=== PATIENT | female | born 1955 | race Caucasian/White ===

== ENCOUNTER → 2017-05-09 | Outpatient (CLI) | payer MEDICARE, OTHER ==
[2017-05-09 18:55] LABS: Hemoglobin A1C 6.6 % (4.0-6.0)
== END | disposition home or self-care (01) ==
LOC: LABWHC1 10:06
PROVIDERS: ATTEND Podiatrist Foot & Ankle Surgery
DX: E11.9 Type 2 diabetes mellitus without complications (principal)
CPT/HCPCS: 36415; 83036

== ENCOUNTER → 2017-06-10 | Outpatient (CLI) | payer MEDICARE, OTHER ==
--- NOTE | 2017-06-10 17:42 | WWHP ---
[facility] - HISTORY AND PHYSICAL DATE OF DICTATION: 06/10/2017 CHIEF COMPLAINT: The patient is here for her routine gynecologic exam and mammogram. HISTORY OF PRESENT ILLNESS: This is a 61-year-old G2, P2 with an LMP of 1995. The patient is without gynecologic complaints. PAST MEDICAL HISTORY: 1. Hypothyroidism. 2. Chronic hypertension. 3. Seasonal allergies and asthma. 4. Restless legs syndrome. 5. Borderline diabetes. 6. Chronic back pain. 7. High cholesterol. MEDICATIONS: 1. Levothyroxine 75 mcg daily. 2. Oxycodone with acetaminophen 5/325 mg t.i.d. p.r.n. 3. Montelukast sodium 10 mg at bedtime. 4. Lisinopril 40 mg daily. 5. Bisoprolol/hydrochlorothiazide 5/6.25 mg daily. 6. Meloxicam 7.5 mg b.i.d. 7. Lyrica 225 mg b.i.d. 8. Cetirizine 10 mg daily. 9. Simvastatin 40 mg daily. ALLERGIES: 1. VICODIN. 2. TRAMADOL. 3. MSG. PAST SURGICAL HISTORY: 1. section x2. 2. Tonsillectomy with adenoidectomy at age 20. 3. Colonoscopy in 2017. 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 SOCIAL HISTORY: She denies tobacco and drug use and has about 6 alcohol-containing drinks per week. She is single but has not had a sexual partner since about 2009. She does not really consider him her boyfriend and does not live with him. She states that this is a monogamous relationship. She works for [employer]. FAMILY HISTORY: Father had diabetes. Brother had an CA at age 56. REVIEW OF SYSTEMS: She has lost 13 pounds with diet. She denies respiratory, cardiac or GI problems. PHYSICAL EXAMINATION: Blood pressure 154/69, height 5 feet 3 inches, weight 221 pounds. BMI 39, temperature 97.8, pulse 63. This is a well-developed, heavyset white female who is alert and oriented x3, in no acute distress. HEENT: Within normal limits. NECK: Supple without mass or thyromegaly. CHEST AND LUNGS: Clear to auscultation. HEART: Regular rate and rhythm. Breasts are without mass or discharge. There is central nipple inversion which she has had for approximately 3-4 years. Axillary exam is negative for adenopathy, back negative for CVA tenderness. ABDOMEN: Obese, soft, nontender, without palpable masses. PELVIC EXAM: External genitalia reveal mild atrophy without lesions. Cervix and vagina reveal mild atrophy without lesions. There is no evidence of prolapse. The uterus is mid position, nongravid size and nontender. There are no palpable adnexal masses or tenderness. Rectovaginal exam is negative for mass or tenderness and is negative for occult blood. Extremities are nontender. IMPRESSION: Jjlhv-ekup-wsdg-old menopausal female with normal gynecologic exam. PLAN: 1. Pap smear was deferred since she had a normal one less than 2 years ago. 2. Self breast examination was discussed. 3. Screening mammogram will be done today. 4. Osteoporosis prevention was discussed. We will plan on doing a baseline screening bone density test next year. 5. She will return in one year. MMODL / IJN: [id number] / ORA
--- NOTE | 2017-06-11 13:13 | MM ---
Reason for exam: screening (asymptomatic). Last mammogram was performed 1 year and 6 months ago. History: Patient is postmenopausal and had first child at age 39. Took estrogen for 1 year. Physical Findings: A clinical breast exam by your physician is recommended on an annual basis and results should be correlated with mammographic findings. MG Screening Mammo w CAD Bilateral CC and MLO view(s) were taken. Prior study comparison: December 12, 2015, bilateral MG screening mammo w CAD. November 01, 2010, bilateral digital screening mammo w/CAD. There are scattered fibroglandular densities. No suspicious abnormality. No significant changes when compared with prior studies. ASSESSMENT: Negative, BI-RAD 1 RECOMMENDATION: Routine screening mammogram of both breasts in 1 year.
== END | disposition home or self-care (01) ==
LOC: WWCWWP 16:11
PROVIDERS: ATTEND Obstetrics & Gynecology
DX: Z12.31 Encounter for screening mammogram for malignant neoplasm of breast (principal)
CPT/HCPCS: 77067

== ENCOUNTER 2018-08-04 16:56 | Emergency (ER) | payer OTHER, MEDICARE ==
[2018-08-04 17:02] VITALS: BP 154/84; PULSE 66; RESP 18; TEMP 98.1
[2018-08-04] MEDS ORDERED: SODIUM CHLORIDE 0.9% 1,000 ML IV STA (17:06)
[2018-08-04] MEDS ORDERED: SODIUM CHLORIDE 0.9% 500 ML 500 ML IV STA (17:06)
[2018-08-04] MEDS ORDERED: DIPH,PERTUS(ACELL)TETVAC-LF 0.5 ML VIAL IM ONE (17:06)
[2018-08-04 17:28] LABS: Basophils # (A) 0.1 k/uL (0-0.2); Basophils % (A) 1 %; Eosinophils # (A) 0.2 k/uL (0-0.7); Eosinophils % (A) 2 %; Lymphocytes # (A) 2.6 k/uL (1.0-4.8); Lymphocytes % (A) 27 %; MCH 30.8 pg (25.0-35.0); MCHC 33.5 g/dL (31.0-37.0); MCV 91.9 fL (80.0-100.0); Mean Platelet Volume 7.5; Monocytes # (A) 0.6 k/uL (0-1.0); Monocytes % (A) 7 %; Neutrophils # (A) 6.2 k/uL (1.3-7.7); Neutrophils % (A) 63 %; Platelet Count 259 k/uL (150-450); RBC 4.24 m/uL (3.80-5.40); RDW 12.4 % (11.5-15.5); WBC 9.7 k/uL (3.8-10.6)
[2018-08-04 17:36] LABS: ALT 83 U/L (9-52); AST 89 U/L (14-36); Albumin 4.3 g/dL (3.5-5.0); Alcohol <10 mg/dL; Alkaline Phosphatase 107 U/L (38-126); Amylase 70 U/L (30-110); Anion Gap 8 mmol/L; Blood Urea Nitrogen 11 mg/dL (7-17); Calcium 9.6 mg/dL (8.4-10.2); Carbon Dioxide 27 mmol/L (22-30); Chloride 96 mmol/L (98-107); Glucose 104 mg/dL (74-99); Lipase 842 U/L (23-300); Potassium 4.3 mmol/L (3.5-5.1); Sodium 131 mmol/L (137-145); Total Bilirubin 0.6 mg/dL (0.2-1.3); Total Protein 6.8 g/dL (6.3-8.2)
[2018-08-04 17:39] LABS: INR 0.9 (<1.2); Partial Thromboplastin Time 23.8 sec (22.0-30.0); Prothrombin Time 9.9 sec (9.0-12.0)
[2018-08-04 17:40] LABS: Creatine Kinase 100 U/L (30-135)
--- NOTE | 2018-08-04 17:40 | XR ---
EXAMINATION TYPE: XR chest 1V portable DATE OF EXAM: 08/04/2018 COMPARISON: 09/20/2014 HISTORY: Pain TECHNIQUE: Single frontal view of the chest is obtained. FINDINGS: Heart and mediastinum are normal. Lungs are clear. Diaphragm is normal. Bony thorax is int act. There are chest leads. IMPRESSION: No active cardiopulmonary disease. Normal heart. No change.
--- NOTE | 2018-08-04 17:41 | XR ---
EXAMINATION TYPE: XR pelvis AP view DATE OF EXAM: 08/04/2018 COMPARISON: NONE HISTORY: Pain TECHNIQUE: Single view FINDINGS: Pelvic ring is intact. Proximal femurs and hip joints are intact. Hip joint spaces are fair ly normal. Sacroiliac joints are intact. IMPRESSION: Negative pelvis x-ray exam.
[2018-08-04 17:52] LABS: Creatine Kinase MB 1.2 ng/mL (0.0-2.4); Troponin I <0.012 ng/mL (0.000-0.034)
[2018-08-04] MEDS ORDERED: MORPHINE SULFATE 4 MG/ML SYRINGE IVP STA (17:56)
[2018-08-04] MEDS ORDERED: ONDANSETRON 4 MG/2 ML VIAL IVP STA ×2 (17:57→18:49)
--- NOTE | 2018-08-04 17:59 | XR ---
EXAMINATION TYPE: XR knee 4V RT DATE OF EXAM: 08/04/2018 COMPARISON: NONE HISTORY: Pain TECHNIQUE: 4 views FINDINGS: There is narrowing of the medial joint space of the knee. There is spurring of medial femor al and tibial condyles. I see no fracture nor dislocation. There is laceration deformity above the pa tella on the lateral view. There is a 6 mm density projected in the laceration region on the lateral view that could be a foreign body. IMPRESSION: Soft tissue laceration deformity. Osteoarthritis. No fracture. Possible soft tissue forei gn body.
[2018-08-04] MEDS ORDERED: BUPIVACAINE (PF) 0.5% 30 ML VIAL SQ STA (18:02)
[2018-08-04] MEDS ORDERED: LIDOCAINE 1%-EPI 1:100,000 20 ML VIAL SQ STA (18:04)
[2018-08-04] MEDS ORDERED: SODIUM CHLORIDE 0.9% 2,000 ML IV ONE (19:38)
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
[2018-08-04 20:20] LABS: Appearance,Urine Clear (Clear); Bilirubin,Urine Negative (Negative); Blood,Urine Negative (Negative); Color,Urine Light Yellow; Glucose,Urine (UA) Negative (Negative); Ketones,Urine Negative (Negative); Leukocyte Esterase,Urine Negative (Negative); Nitrite,Urine Negative (Negative); Protein,Urine Negative (Negative); Specific Gravity,Urine 1.013 (1.001-1.035); Urobilinogen,Urine <2.0 mg/dL (<2.0)
[2018-08-04 20:34] LABS: Amphetamine Screen,Urine Not Detected (NotDetected); Barbiturate Screen,Urine Not Detected (NotDetected); Benzodiazepines Screen,Urine Not Detected (NotDetected); Cocaine Screen,Urine Not Detected (NotDetected); Methadone Screen, Urine Not Detected (NotDetected); Opiate Screen,Urine Detected (NotDetected); Oxycodone Screen, Urine Not Detected (NotDetected); Phencyclidine Screen,Urine Not Detected (NotDetected); Tricyclic Antidepressant,Urine Not Detected (NotDetected); Urn Cannabinoid Scrn Detected (NotDetected)
[2018-08-04] MEDS ORDERED: ceFAZolin 1,000 MG in DEXTROSE/WATER 1 50ML.BAG IVPB STA (20:43)
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
== END 2018-08-04 22:00 | disposition home or self-care (01) ==
LOC: EC 16:56
DX: S81.021A Laceration with foreign body, right knee, initial encounter (principal); S20.211A Contusion of right front wall of thorax, initial encounter; J45.909 Unspecified asthma, uncomplicated; E78.5 Hyperlipidemia, unspecified; I10 Essential (primary) hypertension; E07.9 Disorder of thyroid, unspecified; R00.1 Bradycardia, unspecified; R11.0 Nausea; R42 Dizziness and giddiness; M19.90 Unspecified osteoarthritis, unspecified site; J98.11 Atelectasis; G25.81 Restless legs syndrome; Z23 Encounter for immunization; Z98.51 Tubal ligation status; Z79.1 Long term (current) use of non-steroidal anti-inflammatories (NSAID); Z79.51 Long term (current) use of inhaled steroids; Z79.84 Long term (current) use of oral hypoglycemic drugs; Z79.890 Hormone replacement therapy; Z79.891 Long term (current) use of opiate analgesic; Z79.899 Other long term (current) drug therapy; Z88.5 Allergy status to narcotic agent; Z91.018 Allergy to other foods; V43.53XA Car driver injured in collision with pick-up truck in traffic accident, initial encounter; Y92.410 Unspecified street and highway as the place of occurrence of the external cause
CPT/HCPCS: 99285; 12034; 96365; 96375 ×2; 96376; 96361 ×3; 90471; 36415; 93005; 86900; 86901; 80053; 82150; 82550; 82553; 83605; 83690; 84484; 85025; 85610; 85730; 86850; 81003; 80306; 80320; 72170; 73564; 71045; 72125; 70450; 71260; 74177; 90715; J2270; J2405; J0690; Q9967

== ENCOUNTER → 2018-09-10 | Outpatient (CLI) | payer MEDICARE, OTHER ==
--- NOTE | 2018-09-11 14:13 | MM ---
Reason for exam: screening (asymptomatic). Last mammogram was performed 1 year and 3 months ago. History: Patient is postmenopausal and had first child at age 39. Took estrogen for 1 year. Physical Findings: A clinical breast exam by your physician is recommended on an annual basis and results should be correlated with mammographic findings. MG 3D Screening Mammo W/Cad Bilateral CC and MLO view(s) were taken. Prior study comparison: June 10, 2017, bilateral MG screening mammo w CAD. December 12, 2015, bilateral MG screening mammo w CAD. The breast tissue is heterogeneously dense. This may lower the sensitivity of mammography. Finding: There are typically benign vascular, round, linear calcifications. There is no discrete abnormality. ASSESSMENT: Benign, BI-RAD 2 RECOMMENDATION: Routine screening mammogram of both breasts in 1 year.
== END | disposition home or self-care (01) ==
LOC: RADMAMWWP 08:31
PROVIDERS: ATTEND Family Medicine
DX: Z12.31 Encounter for screening mammogram for malignant neoplasm of breast (principal)
CPT/HCPCS: 77063; 77067

== ENCOUNTER → 2019-09-30 | Outpatient (CLI) | payer MEDICARE, OTHER ==
--- NOTE | 2019-10-01 07:53 | US ---
EXAMINATION TYPE: US liver DATE OF EXAM: 09/30/2019 COMPARISON: NONE CLINICAL HISTORY: 63-year-old female abnormal liver function test R94.5. TECHNIQUE: Multiple sonographic images of the right upper quadrant are obtained. FINDINGS: EXAM MEASUREMENTS: Liver Length: 16.8 cm Gallbladder Wall: .3 cm CBD: .4 cm Right Kidney: 9.1 x 3.8 x 4.8 cm Pancreas: Suboptimal visualization of the pancreatic tail secondary to shadowing from bowel gas. Mos t of the pancreas is visualized and shows no gross abnormality. Liver: Echogenic without focal lesion. Gallbladder: wnl Evidence for sonographic Ugalde's sign: No CBD: wnl Right Kidney: No hydronephrosis. IMPRESSION: 1. Echogenic appearance to the liver suggesting underlying fatty infiltration. 2. No cholelithiasis or biliary ductal dilatation.
== END | disposition home or self-care (01) ==
LOC: RADUSWWP 15:30
PROVIDERS: ATTEND Family Medicine
DX: R94.5 Abnormal results of liver function studies (principal); Z88.4 Allergy status to anesthetic agent; Z88.8 Allergy status to other drugs, medicaments and biological substances
CPT/HCPCS: 76705

== ENCOUNTER 2020-03-03 07:27 | Day surgery (SDC) | payer MEDICARE, OTHER ==
[2020-03-02 08:38] VITALS: BMI 38.9
[~2020-03-03 07:27] MED LIST: ACETAMINOPHEN TAB 500 MG TAB PO ONE; DEXAMETHASONE SOD PHOSPHATE 10 MG/ML 1 ML VIAL IV ONE; HEPARIN SODIUM,PORCINE 5,000 UNIT/ML 1 ML VIAL SQ ONE; HYDROmorphone 0.5 MG/0.5 ML SYRINGE IVP PRN; LACTATED RINGERS 1,000 ML IV SCH; LIDOCAINE 1% (10MG/ML) FOR IV START INTRADERMA PRN; MIDAZOLAM 2 MG/2 ML VIAL IV PRN; ONDANSETRON 4 MG/2 ML VIAL IVP ONE
[2020-03-03 07:45] VITALS: TEMP 96.9
--- NOTE | 2020-03-03 07:46 | P.GSHP ---
History of Present Illness H&P Date: 03/03/20 Chief Complaint: Right quadrant pain Is a 62-year-old female who's had complaints of right quadrant pain. Patient describes pain and nausea when eating greasy or fried foods. She presents today for laparoscopic ostectomy for chronic cholecystitis. Past Medical History Past Medical History: Asthma, Diabetes Mellitus, GERD/Reflux, Hyperlipidemia, Hypertension, Osteoarthritis (OA), Thyroid Disorder Additional Past Medical History / Comment(s): Restless Leg syndrome, (takes Lyrica), states severe arthritis and bone degeneration History of Any Multi-Drug Resistant Organisms: None Reported Past Surgical History: Adenoidectomy, Section, Tonsillectomy, Tubal Ligation Past Anesthesia/Blood Transfusion Reactions: Postoperative Nausea & Vomiting (PONV) Smoking Status: Never smoker - Past Family History Mother Family Medical History: No Reported History Brother(s) Family Medical History: Myocardial Infarction ([place]) Medications and Allergies Home Medications Medication Instructions Recorded Confirmed Type Beclomethasone Dipropionate [Qvar 2 puff INHALATION BID 03/02/14 03/02/20 History 80 mcg/puff] Bisoprolol-Hctz 5-6.25 mg [Ziac 1 tab PO DAILY 03/02/14 03/02/20 History 5-6.25 MG] Levothyroxine Sodium [Synthroid] 75 mcg PO QAM 03/02/14 03/02/20 History Meloxicam 7.5 mg PO BID 03/02/14 03/02/20 History Montelukast Sodium [Singulair] 10 mg PO DAILY 03/02/14 03/02/20 History lisinopriL [Lisinopril] 40 mg PO QAM 03/02/14 03/02/20 History oxyCODONE-APAP 5-325MG [Percocet 1 tab PO BID 03/02/14 03/02/20 History 5-325 mg] Pregabalin [Lyrica] 225 mg PO BID 09/12/14 03/02/20 History Simvastatin [Zocor] 40 mg PO HS 05/27/16 03/02/20 History metFORMIN HCL [Glucophage] 500 mg PO BID 08/04/18 03/02/20 History Pantoprazole [Protonix] 40 mg PO DAILY 03/02/20 03/02/20 History Venlafaxine HCl [Effexor XR] 150 mg PO QAM 03/02/20 03/02/20 History Allergies Allergy/AdvReac Type Severity Reaction Status Date / Time codeine phosphate Allergy Vomiting Verified 03/02/20 08:33 [From Tylenol-Codeine] hydrocodone bitartrate Allergy Vomiting Verified 03/02/20 08:33 [From Vicodin] monosodium glutamate Allergy Anaphylaxis Verified 03/02/20 08:33 tramadol Allergy DIZZINESS Verified 03/02/20 08:33 Surgical - Exam - General well developed, well nourished, no distress - Eyes PERRL - ENT normal pinna - Neck no masses - Respiratory normal expansion - Cardiovascular Rhythm: regular - Abdomen Abdomen: soft, non tender Assessment and Plan Assessment: Chronic cholecystitis. We'll perform laparoscopic cholecystectomy.
[2020-03-03] MEDS ORDERED: PROPOFOL 10 MG/ML 20 ML VIAL IV ONE (08:04)
[2020-03-03] MEDS ORDERED: LIDOCAINE 1% INJ 10MG/ML (20 ML MDV) ONE (08:04)
[2020-03-03] MEDS ORDERED: KETOROLAC 15 MG/ML 1 ML VIAL ONE (08:04)
[2020-03-03] MEDS ORDERED: SUCCINYLCHOLINE CHLORIDE 100 MG/5 ML SYR IV ONE (08:04)
[2020-03-03] MEDS ORDERED: ROCURONIUM 10 MG/ML (10 ML VIAL) IV ONE (08:04)
[2020-03-03] MEDS ORDERED: MIDAZOLAM 2 MG/2 ML VIAL ONE (08:04)
[2020-03-03] MEDS ORDERED: fentaNYL (PF) 50 MCG/ML 2 ML AMP ONE (08:04)
[2020-03-03] MEDS ORDERED: NEOSTIGMINE 1 MG/ML 10 ML VIAL ONE (08:04)
[2020-03-03] MEDS ORDERED: GLYCOPYRROLATE 0.2 MG/ML 2 ML VIAL ONE (08:04)
[2020-03-03] MEDS ORDERED: ATROPINE SULFATE 0.4 MG/ML 1 ML VIAL ONE (08:04)
[2020-03-03 08:05] LABS: Glucose,Whole Blood 176 mg/dL (75-99)
[2020-03-03] MEDS ORDERED: BUPIVACAINE (PF) 0.25% 30 ML VIAL SQ ONE (08:35)
--- NOTE | 2020-03-03 08:49 | P.OP ---
Date of Procedure: 03/03/20 Preoperative Diagnosis: Cholecystitis Biliary hypokinesis Postoperative Diagnosis: Cholecystitis Procedure(s) Performed: Laparoscopic cholecystectomy Anesthesia: ROSALIE Surgeon: Miguel Willams Estimated Blood Loss (ml): 5 Pathology: other (Gallbladder) Condition: stable Disposition: PACU Description of Procedure: The patient was placed on the operating table. The patient received a general endotracheal tube anesthesia. The patients abdomen was prepped and draped in the usual sterile fashion. Through an infraumbilical stab incision, the fascia of the anterior abdominal wall was grasped with a pair of Kochers and then the Veress needle was placed in the peritoneal cavity. Position of the Veress needle was confirmed with positive drop test. The abdomen was then insufflated. After adequate insufflation, the 10 mm trocar was placed in the peritoneal cavity. Following this the laparoscope was placed in the peritoneal cavity. The patient was placed in the head-up, right side up position and then a 5 mm trocar was placed in the right lateral and right subcostal position under direct visualization. A 8 mm trocar was placed in the epigastric position. The gallbladder was grasped in the fundus and infundibulum. Traction on the gallbladder was placed in the lateral and the cephalad positions. The triangle of Calot was visualized.. The cystic duct was bluntly dissected until the union of the cystic duct and common bile duct was seen. A critical view of safety was achieved. The cystic duct was then divided and sealed with the Harmonic scissors. A PDS Endoloop was then placed throughout the cystic duct stump. The cystic artery divided and sealed with the Harmonic scissors. The gallbladder was then removed from the liver bed using Harmonic scissors. The gallbladder was then extracted through the epigastric port site. Operative field was checked for any bleeding spots and Harmonic scissors was used to coagulate the liver bed. The abdomen was irrigated. The trocars were removed. The skin was closed using interrupted 3-0 Vicryl suture. Dermabond dressing were applied. The patient tolerated the procedure well.
[2020-03-03 09:12] VITALS: RESP 16
[2020-03-03 09:12] LABS: Glucose,Whole Blood 188 mg/dL (75-99)
[2020-03-03 10:12] VITALS: BP 115/76
[2020-03-03 10:42] VITALS: PULSE 61
== END 2020-03-03 11:15 | disposition home or self-care (01) ==
LOC: OR 07:27
PROVIDERS: ATTEND Surgery
DX: K80.10 Calculus of gallbladder with chronic cholecystitis without obstruction (principal); J45.909 Unspecified asthma, uncomplicated; E11.9 Type 2 diabetes mellitus without complications; K21.9 Gastro-esophageal reflux disease without esophagitis; E78.5 Hyperlipidemia, unspecified; I10 Essential (primary) hypertension; M19.90 Unspecified osteoarthritis, unspecified site; E07.9 Disorder of thyroid, unspecified; G25.81 Restless legs syndrome; M89.8X9 Other specified disorders of bone, unspecified site; K08.89 Other specified disorders of teeth and supporting structures; F32.9 Major depressive disorder, single episode, unspecified; Z90.89 Acquired absence of other organs; Z98.890 Other specified postprocedural states; Z98.51 Tubal ligation status; Z91.89 Other specified personal risk factors, not elsewhere classified; Z79.51 Long term (current) use of inhaled steroids; Z79.899 Other long term (current) drug therapy; Z79.890 Hormone replacement therapy; Z79.1 Long term (current) use of non-steroidal anti-inflammatories (NSAID); Z79.891 Long term (current) use of opiate analgesic; Z79.84 Long term (current) use of oral hypoglycemic drugs; Z88.5 Allergy status to narcotic agent; Z91.02 Food additives allergy status; Z82.49 Family history of ischemic heart disease and other diseases of the circulatory system
CPT/HCPCS: 88304; 47562; J2250; J0461; J1644; J1100; J2710; J0690; J2405; J2001; J3010; J1885; J0330; J2704

== ENCOUNTER → 2020-07-11 | Outpatient (CLI) | payer MEDICARE, OTHER ==
[2020-07-11 10:40] VITALS: BP 147/95; PULSE 80; RESP 18; TEMP 98.3
--- NOTE | 2020-07-11 11:32 | P.HPOB ---
History of Present Illness H&P Date: 07/11/20 Chief Complaint: The patient is here for her routine gynecologic exam. This is a 64-year-old with an LMP of 1995. The patient is without gynecologic complaints and denies any postmenopausal bleeding. Review of Systems She has gained about 7 pounds over the past 3 years. She denies respiratory, cardiac, or GI problems. 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 History of Any Multi-Drug Resistant Organisms: None Reported Past Surgical History: Adenoidectomy, Section, Tonsillectomy, Tubal Ligation Additional Past Surgical History / Comment(s): section 2. Colonoscopy 2016(next after 10yr) Past Anesthesia/Blood Transfusion Reactions: Postoperative Nausea & Vomiting (PONV) Past Psychological History: Depression Smoking Status: Never smoker Past Alcohol Use History: Occasional (6 per week) Past Drug Use History: None Reported Additional History: She has been with her sexual partner since 2009 and does not live with him. She states this is a monogamous relationship. 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 - Past Family History Mother Family Medical History: No Reported History Brother(s) Family Medical History: Myocardial Infarction ([place]) Father Family Medical History: Diabetes Mellitus Medications and Allergies Home Medications Medication Instructions Recorded Confirmed Type Bisoprolol-Hctz 5-6.25 mg [Ziac 1 tab PO DAILY 03/02/14 07/11/20 History 5-6.25 MG] Levothyroxine Sodium [Synthroid] 75 mcg PO QAM 03/02/14 07/11/20 History Meloxicam 7.5 mg PO BID 03/02/14 07/11/20 History Montelukast Sodium [Singulair] 10 mg PO DAILY 03/02/14 07/11/20 History lisinopriL [Lisinopril] 40 mg PO QAM 03/02/14 07/11/20 History Pregabalin [Lyrica] 225 mg PO BID 09/12/14 07/11/20 History Simvastatin [Zocor] 40 mg PO HS 05/27/16 07/11/20 History metFORMIN HCL [Glucophage] 500 mg PO BID 08/04/18 07/11/20 History Pantoprazole [Protonix] 40 mg PO DAILY 03/02/20 07/11/20 History Venlafaxine HCl [Effexor XR] 150 mg PO QAM 03/02/20 07/11/20 History HYDROcodone/APAP 5-325MG [[place] 1 tab PO Q6HR PRN #10 tab 03/03/20 07/11/20 Rx 5-325] Cetirizine HCl 10 mg PO DAILY 07/11/20 07/11/20 History Fluticasone Propionate [Flovent 50 mcg INHALATION DAILY 07/11/20 07/11/20 History Diskus] Fluticasone/Salmeterol [Advair Hfa 2 puff INHALATION BID 07/11/20 07/11/20 History 115-21 Mcg Inhaler] lisinopriL 40 mg PO DAILY 07/11/20 07/11/20 History Allergies Allergy/AdvReac Type Severity Reaction Status Date / Time codeine phosphate Allergy Vomiting Verified 07/11/20 10:32 [From Tylenol-Codeine] hydrocodone bitartrate Allergy Vomiting Verified 07/11/20 10:32 [From Vicodin] monosodium glutamate Allergy Anaphylaxis Verified 07/11/20 10:32 tramadol Allergy DIZZINESS Verified 07/11/20 10:32 Exam Vital Signs Temp Pulse Resp BP Pulse Ox 07/11/20 10:33 98.3 F 80 18 147/95 97 Intake and Output 07/10/20 07/11/20 07/11/20 22:59 06:59 14:59 Other: Weight 103.419 kg Height 5 feet 3 inches, weight 228 pounds, BMI 40.4. This is a well-developed well-nourished heavyset white female who is alert and oriented times 3 in no acute distress. HEENT: Within normal limits. NECK: Supple without mass or thyromegaly. CHEST AND LUNGS: Clear to auscultation. HEART: Regular rate and rhythm. BREASTS: Are without mass or discharge. There is central nipple inversion b ilaterally. The patient states they have been this way for several years. This is unchanged from her 06/10/17 exam. AXILLARY EXAM: Negative for adenopathy. BACK: Negative for CVA tenderness. ABDOMEN: Soft, nontender, without palpable masses. PELVIC EXAM: Normal external genitalia with mild atrophy. Cervix and vagina appear normal with mild atrophy. The cervix appears nulliparous and is slightly stenotic secondary to atrophy. There is no unusual discharge. There is no evidence of prolapse. The uterus is midposition, nongravid size and nontender. There are no palpable adnexal masses or tenderness. Bimanual examination is somewhat limited secondary to her size. RECTAL EXAM: Rectovaginal exam is negative for mass or tenderness and is negative for occult blood. EXTREMITIES: Nontender. IMPRESSION: 1. 64-year-old menopausal female with normal gynecologic exam. 2. Stable central nipple inversion on breast exam. PLAN: 1. Pap smear cotest was performed. 2. Self breast awareness was discussed with the patient. 3. The patient states she had a screening mammogram in September 2019 at [facility]. I recommended that she repeat this again this September. The order slip was given to the patient for this. 4. Osteoporosis prevention was discussed. I have stressed the importance of adequate calcium, vitamin D and regular exercise. Recommended amounts of calcium and vitamin D were also discussed. She had a normal bone density test on 12/12/2015. I have recommended that we repeat this again next year. 5. She was advised to return in one year for her annual well woman exam.
--- NOTE | 2020-07-18 17:47 | P.PN ---
Progress Note - Text Progress Note Date: 07/18/20 OUTPATIENT FOLLOW-UP NOTE TEST(S)/RESULTS: Test results from 07/11/2020 include negative Pap smear and negative high risk HPV testing. METHOD OF NOTIFICATION: A message with these results was left on the patient's voicemail. PATIENT COMMENTS: DIAGNOSIS: Negative Pap smear cotest. DISCUSSION: PLAN: She was advised to return in one year for her annual well woman exam.
== END ==
LOC: WWCWWP 10:23
PROVIDERS: ATTEND Obstetrics & Gynecology
DX: N64.59 Other signs and symptoms in breast (principal); J45.909 Unspecified asthma, uncomplicated; E11.9 Type 2 diabetes mellitus without complications; I10 Essential (primary) hypertension; E78.5 Hyperlipidemia, unspecified; M19.90 Unspecified osteoarthritis, unspecified site; E03.9 Hypothyroidism, unspecified; F32.9 Major depressive disorder, single episode, unspecified; K21.9 Gastro-esophageal reflux disease without esophagitis; Z79.51 Long term (current) use of inhaled steroids; Z79.1 Long term (current) use of non-steroidal anti-inflammatories (NSAID); Z79.84 Long term (current) use of oral hypoglycemic drugs; Z79.899 Other long term (current) drug therapy; Z79.890 Hormone replacement therapy

== ENCOUNTER → 2021-08-28 | Outpatient (CLI) | payer MEDICARE, OTHER ==
[2021-08-28 12:48] VITALS: PULSE 68; RESP 12; TEMP 98.2
--- NOTE | 2021-08-28 13:21 | P.HPOB ---
History of Present Illness H&P Date: 08/28/21 Chief Complaint: The patient is here for her routine gynecologic exam and ma mmogram. This is a 65-year-old with an LMP of 1995. The patient is without gynecologic complaints and denies any postmenopausal bleeding. Review of Systems The patient has lost about 3 pounds over the past year. Respiratory: Occasional ALLERGY symptoms. She denies cardiac or GI problems. Musculoskeletal: Occasional muscular cramps. 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 History of Any Multi-Drug Resistant Organisms: None Reported Past Surgical History: Adenoidectomy, Section, Cholecystectomy, Tonsillectomy, Tubal Ligation Additional Past Surgical History / Comment(s): section 2. Colonoscopy 2017(next after 10yr) Past Anesthesia/Blood Transfusion Reactions: Postoperative Nausea & Vomiting (PONV) Past Psychological History: Depression Smoking Status: Never smoker Past Alcohol Use History: Occasional (Less than 7 per week.) Past Drug Use History: None Reported Additional History: She has been with her boyfriend since 2009 and does not live with him. 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 - Past Family History Mother Family Medical History: No Reported History Brother(s) Family Medical History: Myocardial Infarction ([place]) Father Family Medical History: Diabetes Mellitus Medications and Allergies Home Medications Medication Instructions Recorded Confirmed Type Bisoprolol-Hctz 5-6.25 mg [Ziac 1 tab PO DAILY 03/02/14 07/11/20 History 5-6.25 MG] Levothyroxine Sodium [Synthroid] 75 mcg PO QAM 03/02/14 07/11/20 History Meloxicam 7.5 mg PO BID 03/02/14 07/11/20 History Montelukast Sodium [Singulair] 10 mg PO DAILY 03/02/14 07/11/20 History lisinopriL [Lisinopril] 40 mg PO QAM 03/02/14 07/11/20 History Pregabalin [Lyrica] 225 mg PO BID 09/12/14 07/11/20 History Simvastatin [Zocor] 40 mg PO HS 05/27/16 07/11/20 History metFORMIN HCL [Glucophage] 500 mg PO BID 08/04/18 07/11/20 History Pantoprazole [Protonix] 40 mg PO DAILY 03/02/20 07/11/20 History Venlafaxine HCl [Effexor XR] 150 mg PO QAM 03/02/20 07/11/20 History HYDROcodone/APAP 5-325MG [[place] 1 tab PO Q6HR PRN #10 tab 03/03/20 07/11/20 Rx 5-325] Cetirizine HCl 10 mg PO DAILY 07/11/20 07/11/20 History Ondansetron [Zofran] 4 mg PO DIRECTED PRN 08/28/21 08/28/21 History Allergies Allergy/AdvReac Type Severity Reaction Status Date / Time codeine phosphate Allergy Vomiting Verified 08/28/21 12:42 [From Tylenol-Codeine] hydrocodone bitartrate Allergy Vomiting Verified 08/28/21 12:42 [From Vicodin] monosodium glutamate Allergy Anaphylaxis Verified 08/28/21 12:42 tramadol Allergy DIZZINESS Verified 08/28/21 12:42 Exam Vital Signs Temp Pulse Resp 08/28/21 12:44 98.2 F 68 12 Intake and Output 08/27/21 08/28/21 08/28/21 22:59 06:59 14:59 Other: Weight 102.058 kg Height 5 feet 2 inches, weight 225 pounds, BMI 41.2. This is a well-developed well-nourished heavyset white female who is alert and oriented times 3 in no acute distress. HEENT: Within normal limits. NECK: Supple without mass or thyromegaly. CHEST AND LUNGS: Clear to auscultation. HEART: Regular rate and rhythm. BREASTS: Are without mass or discharge. There is bilateral central nipple inversion which the patient states she has had for many years. AXILLARY EXAM: Negative for adenopathy. BACK: Negative for CVA tenderness. ABDOMEN: Soft, obese, nontender, without palpable masses. PELVIC EXAM: Normal external genitalia with mild atrophy. Cervix and vagina appear normal with mild atrophy. There is no unusual discharge. There is no evidence of prolapse. The uterus is midposition, nongravid size and nontender. There are no palpable adnexal masses or tenderness. Bimanual examination is somewhat limited secondary to her size. RECTAL EXAM: Rectovaginal exam is negative for mass or tenderness and is negative for occult blood. EXTREMITIES: Nontender. IMPRESSION: 1. 65-year-old menopausal female with normal gynecologic exam. PLAN: 1. Pap smear was deferred since she had a normal Pap smear cotest on 07/11/2020. 2. Self breast awareness was discussed with the patient. We have also discussed symptoms associated with inflammatory breast cancer. 3. Screening mammogram will be done today. 4. Osteoporosis prevention was discussed. I have stressed the importance of adequate calcium, vitamin D and regular exercise. Recommended amounts of calcium and vitamin D were also discussed. I recommended repeating her bone density test since her last one was done in 2016 and this one was normal. She would like to do this next year. 5. She has completed her Covid vaccination series, but did not receive a booster. She will consider the booster. 6. She was advised to return in one year for her annual well woman exam.
--- NOTE | 2021-08-29 09:44 | MM ---
Reason for exam: screening (asymptomatic). Last mammogram was performed 3 years ago. History: Patient is postmenopausal and had first child at age 39. Took estrogen for 1 year. Physical Findings: A clinical breast exam by your physician is recommended on an annual basis and results should be correlated with mammographic findings. MG Screening Mammo w CAD Bilateral CC, MLO, and XCCL view(s) were taken. Prior study comparison: September 10, 2018, bilateral MG 3d screening mammo w/cad. June 10, 2017, bilateral MG screening mammo w CAD. There are scattered fibroglandular densities. Finding: There are typically benign dystrophic, round, linear calcifications in both breasts, greater in number of calcifications in the right breast. There is no discrete abnormality. Increase in number of calcifications since September 10, 2018 and June 10, 2017. ASSESSMENT: Benign, BI-RAD 2 RECOMMENDATION: Routine screening mammogram of both breasts in 1 year.
== END ==
LOC: WWCWWP 12:20
PROVIDERS: ATTEND Obstetrics & Gynecology
DX: Z12.31 Encounter for screening mammogram for malignant neoplasm of breast (principal); Z01.419 Encounter for gynecological examination (general) (routine) without abnormal findings; E03.9 Hypothyroidism, unspecified; E11.9 Type 2 diabetes mellitus without complications; E78.5 Hyperlipidemia, unspecified; J45.909 Unspecified asthma, uncomplicated; F32.A Depression, unspecified; K21.9 Gastro-esophageal reflux disease without esophagitis; M19.90 Unspecified osteoarthritis, unspecified site; I10 Essential (primary) hypertension; Z79.890 Hormone replacement therapy; Z79.84 Long term (current) use of oral hypoglycemic drugs; Z78.0 Asymptomatic menopausal state; Z88.5 Allergy status to narcotic agent; Z91.02 Food additives allergy status
CPT/HCPCS: 77067

== ENCOUNTER 2022-01-17 12:30 | Emergency (ER) | payer MEDICARE, OTHER ==
[2022-01-17] MEDS ORDERED: ONDANSETRON 4 MG ODT STARTER PACK 2 TAB BTL PO STA (15:47)
--- NOTE | 2022-01-17 16:23 | XR ---
EXAMINATION TYPE: XR chest 2V DATE OF EXAM: 01/17/2022 COMPARISON: 08/04/2018 HISTORY: 66 year-old female shortness of breath TECHNIQUE: AP and lateral views FINDINGS: Heart limits of normal in size. There is some patchy peripheral right mid and lower lung opacity. Mil d interstitial prominence is similar. No pleural effusion. IMPRESSION: Some patchy atelectasis versus developing infiltrate in the periphery of the right mid and lower lung . Clinically correlate. Otherwise, background chronic changes.
[2022-01-17] MEDS ORDERED: LORazepam 2 MG/ML INJ IV STA (16:45)
[2022-01-17] MEDS ORDERED: PANTOPRAZOLE 40 MG/10 ML VIAL IVP STA (16:45)
[2022-01-17] MEDS ORDERED: SODIUM CHLORIDE 0.9% 1,000 ML IV STA (16:45)
[2022-01-17] MEDS ORDERED: ONDANSETRON 4 MG/2 ML VIAL IVP STA (16:45)
[2022-01-17] MEDS ORDERED: SODIUM CHLORIDE 0.9% 500 ML 500 ML IV STA (16:45)
[2022-01-17] MEDS ORDERED: dexAMETHasone 2 MG TAB PO STA (16:47)
[2022-01-17] MEDS ORDERED: LABETALOL 5 MG/ML VIAL MDV IVP STA (16:47)
--- NOTE | 2022-01-17 16:51 | ED ---
General Adult HPI - General Chief complaint: Nausea/Vomiting/Diarrhea Stated complaint: NVD Time Seen by Provider: 01/17/22 16:20 Source: patient, RN notes reviewed, old records reviewed Mode of arrival: ambulatory Limitations: no limitations - History of Present Illness Initial comments: This is a 66-year-old female presents emergency department stating that she has been sick with cough and upper respiratory issues for about 6 days. Patient states she was given antibiotics and ever since she's been on antibiotic she has been able to hold anything down. Patient states she has not taken anything for her blood pressure meds because she has been vomiting every day. Patient has diffuse soreness of the belly but she believes is secondary to vomiting. Patient denies any chest pain or palpitation. Patient denies difficulty breathing. Patient denies headache patient denies any numbness weakness. Patient denies any lightheadedness or near syncopal episode. Patient feels hot and has the chills occasionally but she hasn't taken her temperature. Patient states took COVID test on Friday and it was negative however today we tested the urine it was positive. - Related Data Home Medications Medication Instructions Recorded Confirmed Bisoprolol-Hctz 5-6.25 mg [Ziac 1 tab PO DAILY 03/02/14 01/17/22 5-6.25 MG] Levothyroxine Sodium [Synthroid] 75 mcg PO QAM 03/02/14 01/17/22 Meloxicam 7.5 mg PO BID 03/02/14 01/17/22 Montelukast Sodium [Singulair] 10 mg PO DAILY 03/02/14 01/17/22 lisinopriL [Lisinopril] 40 mg PO QAM 03/02/14 01/17/22 Pregabalin [Lyrica] 225 mg PO BID 09/12/14 01/17/22 Simvastatin [Zocor] 40 mg PO HS 05/27/16 01/17/22 metFORMIN HCL [Glucophage] 500 mg PO BID 08/04/18 01/17/22 Pantoprazole [Protonix] 40 mg PO DAILY 03/02/20 01/17/22 Venlafaxine HCl [Effexor XR] 150 mg PO QAM 03/02/20 01/17/22 Cyclobenzaprine [Flexeril] 10 mg PO HS PRN 01/17/22 01/17/22 EPINEPHrine (Auto Inject) [Epipen] 0.3 mg IM ONCE PRN 01/17/22 01/17/22 Fluticasone Propion/Salmeterol 2 puff INHALATION RT-BID 01/17/22 01/17/22 [Advair Hfa 115-21 Mcg Inhaler] Levocetirizine Dihydrochloride 5 mg PO DAILY 01/17/22 01/17/22 [Xyzal] Semaglutide [Ozempic] 0.5 mg SQ SA 01/17/22 01/17/22 oxyCODONE HCL/ACETAMINOPHEN 1 tab PO TID 01/17/22 01/17/22 [Percocet 5-325 mg] Previous Rx's Medication Instructions Recorded dexAMETHasone [Decadron] 6 mg PO DAILY #5 tab 01/17/22 Allergies Allergy/AdvReac Type Severity Reaction Status Date / Time monosodium glutamate Allergy Anaphylaxis Verified 01/17/22 17:21 codeine phosphate AdvReac Vomiting Verified 01/17/22 17:21 [From Tylenol-Codeine] hydrocodone bitartrate AdvReac Vomiting Verified 01/17/22 17:21 [From Vicodin] tramadol AdvReac DIZZINESS Verified 01/17/22 17:21 Review of Systems ROS Statement: Those systems with pertinent positive or pertinent negative responses have been documented in the HPI. ROS Other: All systems not noted in ROS Statement are negative. Past Medical History Past Medical History: Asthma, Diabetes Mellitus, GERD/Reflux, Hyperlipidemia, Hypertension, Osteoarthritis (OA), Thyroid Disorder Additional Past Medical History / Comment(s): Hypothyroidism, seasonal ALLERGIE S, type 2 diabetes, chronic back pain, Restless Leg syndrome. PAST [employer] HISTORY: She has no history of STDs. History of Any Multi-Drug Resistant Organisms: None Reported Past Surgical History: Adenoidectomy, Section, Cholecystectomy, Tonsillectomy, Tubal Ligation Additional Past Surgical History / Comment(s): section 2. Colonoscopy 2017(next after 10yr) Past Anesthesia/Blood Transfusion Reactions: Postoperative Nausea & Vomiting (PONV) Past Psychological History: Depression Smoking Status: Never smoker Past Alcohol Use History: Occasional Past Drug Use History: None Reported - Past Family History Mother Family Medical History: No Reported History Brother(s) Family Medical History: Myocardial Infarction (ND) Father Family Medical History: Diabetes Mellitus General Exam - General Exam Comments Initial Comments: GENERAL: Patient is well-developed and well-nourished. Patient is nontoxic and well- hydrated and is in mild distress. ENT: Neck is soft and supple. No significant lymphadenopathy is noted. Oropharynx is clear. Dry mucous membranes. Neck has full range of motion without eliciting any pain. EYES: The sclera were anicteric and conjunctiva were pink and moist. Extraocular movements were intact and pupils were equal round and reactive to light. Eyelids were unremarkable. PULMONARY: Unlabored respirations. Good breath sounds bilaterally. No audible rales rhonc hi or wheezing was noted. CARDIOVASCULAR: There is a regular rate and rhythm without any murmurs gallops or rubs. ABDOMEN: Soft and nontender with normal bowel sounds. There is no specific area of tenderness. SKIN: Skin is clear with no lesions or rashes and otherwise unremarkable. NEUROLOGIC: Patient is alert and oriented x3. Cranial nerves II through XII are grossly intact. Motor and sensory are also intact. Normal speech, volume and content. Symmetrical smile. MUSCULOSKELETAL: Normal extremities with adequate strength and full range of motion. LYMPHATICS: No significant lymphadenopathy is noted PSYCHIATRIC: Normal psychiatric evaluation. Limitations: no limitations Course Vital Signs 01/17/22 01/17/22 01/17/22 13:03 16:24 16:45 Temperature 98.0 F 99.4 F Pulse Rate 106 H 113 H 110 H Respiratory 22 20 26 H Rate Blood Pressure 172/103 192/113 O2 Sat by Pulse 99 99 98 Oximetry 01/17/22 01/17/22 17:38 18:12 Temperature 98.9 F Pulse Rate 95 92 Respiratory 20 20 Rate Blood Pressure 169/95 114/86 O2 Sat by Pulse 99 99 Oximetry Medical Decision Making - Medical Decision Making I went back in the room to reevaluate the patient she was sleeping when I woke up she stated she felt much better. Patient states she is no longer nauseated or vomiting. Patient denied any shortness of breath or any pain whatsoever. Patient was given Zofran and fluids and Decadron in the emergency department. Patient also was given 0.5 of Ativan because she was very anxious. - Lab Data Result diagrams: 01/17/22 17:37 01/17/22 Unknown Lab Results 01/17/22 01/17/22 01/17/22 Range/Units 15:42 17:37 Unknown WBC 11.4 H (3.8-10.6) k/uL RBC 4.86 (3.80-5.40) m/uL Hgb 15.1 (11.4-16.0) gm/dL Hct 43.9 (34.0-46.0) % MCV 90.4 (80.0-100.0) fL MCH 31.1 (25.0-35.0) pg MCHC 34.4 (31.0-37.0) g/dL RDW 12.9 (11.5-15.5) % Plt Count 301 (150-450) k/uL MPV 8.2 Neutrophils % 73 % Lymphocytes % 18 % Monocytes % 8 % Eosinophils % 0 % Basophils % 0 % Neutrophils # 8.3 H (1.3-7.7) k/uL Lymphocytes # 2.1 (1.0-4.8) k/uL Monocytes # 0.9 (0-1.0) k/uL Eosinophils # 0.0 (0-0.7) k/uL Basophils # 0.0 (0-0.2) k/uL Sodium 140 (137-145) mmol/L Potassium 3.8 (3.5-5.1) mmol/L Chloride 104 (98-107) mmol/L Carbon Dioxide 16 L (22-30) mmol/L Anion Gap 20 mmol/L BUN 14 (7-17) mg/dL Creatinine 0.83 (0.52-1.04) mg/dL Est GFR (CKD-EPI)AfAm 87 (>60 ml/min/1.73 sqM) Est GFR (CKD-EPI)NonAf 75 (>60 ml/min/1.73 sqM) Glucose 206 H (74-99) mg/dL Calcium 9.8 (8.4-10.2) mg/dL Total Bilirubin 1.0 (0.2-1.3) mg/dL AST 41 H (14-36) U/L ALT 43 H (4-34) U/L Alkaline Phosphatase 102 (38-126) U/L Total Protein 7.9 (6.3-8.2) g/dL Albumin 5.2 H (3.5-5.0) g/dL Amylase 43 (30-110) U/L Lipase 79 (23-300) U/L Coronavirus (PCR) Detected A (Not Detectd) Disposition Clinical Impression: COVID-19, Acute vomiting Disposition: HOME SELF-CARE Condition: Good Instructions (If sedation given, give patient instructions): Acute Nausea and Vomiting (ED), COVID-19 (Coronavirus Disease 2019) (ED) Additional Instructions: Patient returns emergency palms any difficulty breathing shortness of breath. Prescriptions: dexAMETHasone [Decadron] 6 mg PO DAILY #5 tab Is patient prescribed a controlled substance at d/c from ED?: No Referrals: Saman Segura MD [Primary Care Provider] - 1-2 days Time of Disposition: 18:32
[2022-01-17 17:34] LABS: Basophils % (A) 0 %; Eosinophils % (A) 0 %; HCT 43.9 % (34.0-46.0); HGB 15.1 gm/dL (11.4-16.0); Lymphocytes # (A) 2.1 k/uL (1.0-4.8); Lymphocytes % (A) 18 %; MCH 31.1 pg (25.0-35.0); MCHC 34.4 g/dL (31.0-37.0); MCV 90.4 fL (80.0-100.0); Mean Platelet Volume 8.2; Monocytes # (A) 0.9 k/uL (0-1.0); Monocytes % (A) 8 %; Neutrophils # (A) 8.3 k/uL (1.3-7.7); Neutrophils % (A) 73 %; Platelet Count 301 k/uL (150-450); RBC 4.86 m/uL (3.80-5.40); RDW 12.9 % (11.5-15.5); WBC 11.4 k/uL (3.8-10.6)
[2022-01-17 17:39] VITALS: TEMP 98.9
[2022-01-17 17:46] LABS: Albumin 5.2 g/dL (3.5-5.0); Calcium 9.8 mg/dL (8.4-10.2); Potassium 3.8 mmol/L (3.5-5.1); Total Protein 7.9 g/dL (6.3-8.2)
[2022-01-17 18:53] VITALS: BP 149/85; PULSE 60; RESP 16
== END 2022-01-17 18:54 | disposition home or self-care (01) ==
LOC: EC 12:30
DX: U07.1 COVID-19 (principal); J45.909 Unspecified asthma, uncomplicated; E11.9 Type 2 diabetes mellitus without complications; K21.9 Gastro-esophageal reflux disease without esophagitis; E78.5 Hyperlipidemia, unspecified; I10 Essential (primary) hypertension; M19.90 Unspecified osteoarthritis, unspecified site; E07.9 Disorder of thyroid, unspecified; F32.A Depression, unspecified; Z91.018 Allergy to other foods; Z88.5 Allergy status to narcotic agent; Z79.890 Hormone replacement therapy; Z79.84 Long term (current) use of oral hypoglycemic drugs; Z79.899 Other long term (current) drug therapy
CPT/HCPCS: 36415; 80053; 82150; 83690; 85025; 87635; 71046; 99284; 96374; 96375 ×3; 96361 ×2; J2060; J2405; J8540; S0119; C9113

== ENCOUNTER 2023-08-31 17:10 | Inpatient (IN) | payer MEDICARE, OTHER ==
--- NOTE | 2023-08-31 17:43 | ED ---
Syncope HPI - General Chief Complaint: Syncope Stated Complaint: syncope Time Seen by Provider: 08/31/23 17:13 Source: patient, family, EMS, RN notes reviewed, old records reviewed Mode of arrival: EMS Limitations: no limitations - History of Present Illness Initial Comments: This is a 67-year-old female to the ER for evaluation. Patient comes in for [facility] recent syncopal events. Patient has had this issue for some time and has had this issue in the past. Patient has multiple syncopal episodes today and feels weak MD Complaint: loss of consciousness, felt faint, collapsed -: days(s) Prodromal Symptoms: lightheaded -: second(s) Witnessed: yes - by bystander Injuries Sustained Associated with Event: None Current Symptoms: lightheaded History: previous syncopal episode - Related Data Home Medications Medication Instructions Recorded Confirmed Levothyroxine Sodium [Synthroid] 75 mcg PO DAILY 03/02/14 08/31/23 Meloxicam 7.5 mg PO BID 03/02/14 08/31/23 Montelukast Sodium [Singulair] 10 mg PO HS 03/02/14 08/31/23 lisinopriL 40 mg PO DAILY 03/02/14 08/31/23 Pregabalin [Lyrica] 225 mg PO BID 09/12/14 08/31/23 Simvastatin [Zocor] 40 mg PO HS 05/27/16 08/31/23 Pantoprazole [Protonix] 40 mg PO DAILY 03/02/20 08/31/23 Venlafaxine HCl [Effexor XR] 150 mg PO DAILY 03/02/20 08/31/23 oxyCODONE HCL/ACETAMINOPHEN 1 tab PO TID PRN 01/17/22 08/31/23 [Percocet 5-325 mg] Acetaminophen Tab [Tylenol] 500 mg PO Q6H PRN 08/31/23 08/31/23 Bimatoprost [Lumigan 0.01% Ophth 1 drop BOTH EYES HS 08/31/23 08/31/23 Soln] Ondansetron Odt [Zofran ODT] 8 mg PO Q12HR PRN 08/31/23 08/31/23 Previous Rx's Medication Instructions Recorded Aspirin 81 mg PO DAILY #30 tab 09/03/23 metFORMIN HCL [Glucophage] 1,000 mg PO BID-W/MEALS #60 tab 09/03/23 Allergies Allergy/AdvReac Type Severity Reaction Status Date / Time monosodium glutamate Allergy Anaphylaxis Verified 08/31/23 17:21 codeine phosphate AdvReac Vomiting Verified 08/31/23 17:21 [From Tylenol-Codeine] hydrocodone bitartrate AdvReac Vomiting Verified 08/31/23 17:21 [From Vicodin] tramadol AdvReac DIZZINESS Verified 08/31/23 17:21 Review of Systems ROS Statement: Those systems with pertinent positive or pertinent negative responses have been documented in the HPI. ROS Other: All systems not noted in ROS Statement are negative. 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 History of Any Multi-Drug Resistant Organisms: None Reported Past Surgical History: Adenoidectomy, Section, Cholecystectomy, Tonsillectomy, Tubal Ligation Additional Past Surgical History / Comment(s): section 2. Colonoscopy 2017(next after 10yr) Past Anesthesia/Blood Transfusion Reactions: Postoperative Nausea & Vomiting (PONV) Past Psychological History: Depression Smoking Status: Never smoker Past Alcohol Use History: Occasional Past Drug Use History: None Reported - Past Family History Mother Family Medical History: No Reported History Brother(s) Family Medical History: Myocardial Infarction (AR) Father Family Medical History: Diabetes Mellitus General Exam Limitations: altered mental status, physical limitation General appearance: alert, in no apparent distress Head exam: Present: atraumatic, normocephalic, normal inspection Eye exam: Present: normal appearance, PERRL, EOMI. Absent: scleral icterus, conjunctival injection, periorbital swelling ENT exam: Present: normal exam, mucous membranes moist Neck exam: Present: normal inspection. Absent: tenderness, meningismus, lymphadenopathy Respiratory exam: Present: normal lung sounds bilaterally. Absent: respiratory distress, wheezes, rales, rhonchi, stridor Cardiovascular Exam: Present: regular rate, normal rhythm, normal heart sounds. Absent: systolic murmur, diastolic murmur, rubs, gallop, clicks GI/Abdominal exam: Present: soft, normal bowel sounds. Absent: distended, tenderness, guarding, rebound, rigid Extremities exam: Present: normal inspection, full ROM, normal capillary refill. Absent: tenderness, pedal edema, joint swelling, calf tenderness Back exam: Present: normal inspection Neurological exam: Present: alert, oriented X3, CN II-XII intact Psychiatric exam: Present: normal affect, normal mood Skin exam: Present: warm, dry, intact, normal color. Absent: rash Course Vital Signs 08/31/23 08/31/23 08/31/23 17:12 18:32 20:12 Temperature 97.4 F L Pulse Rate 63 65 70 Pulse Rate [ Sitting Medical Supervisor] Pulse Rate [ Standing Medical Supervisor ] Pulse Rate [ Supine Medical Supervisor] Respiratory 16 16 16 Rate Blood Pressure 84/45 69/40 103/64 Blood Pressure [Left Arm Sitting] Blood Pressure [Left Arm Standing] Blood Pressure [Left Arm Supine] O2 Sat by Pulse 95 96 97 Oximetry 08/31/23 08/31/23 09/01/23 21:00 22:28 04:08 Temperature Pulse Rate 72 71 60 Pulse Rate [ Sitting Medical Supervisor] Pulse Rate [ Standing Medical Supervisor ] Pulse Rate [ Supine Medical Supervisor] Respiratory 18 18 16 Rate Blood Pressure 106/54 106/67 100/54 Blood Pressure [Left Arm Sitting] Blood Pressure [Left Arm Standing] Blood Pressure [Left Arm Supine] O2 Sat by Pulse 97 99 98 Oximetry 09/01/23 09/01/23 09/01/23 06:55 10:15 12:05 Temperature 97.9 F 98.0 F Pulse Rate 64 65 61 Pulse Rate [ Sitting Medical Supervisor] Pulse Rate [ Standing Medical Supervisor ] Pulse Rate [ Supine Medical Supervisor] Respiratory 16 17 17 Rate Blood Pressure 100/50 105/72 115/76 Blood Pressure [Left Arm Sitting] Blood Pressure [Left Arm Standing] Blood Pressure [Left Arm Supine] O2 Sat by Pulse 96 97 97 Oximetry 09/01/23 09/01/23 09/01/23 14:56 17:57 20:52 Temperature 98.4 F Pulse Rate 65 66 67 Pulse Rate [ Sitting Medical Supervisor] Pulse Rate [ Standing Medical Supervisor ] Pulse Rate [ Supine Medical Supervisor] Respiratory 18 16 18 Rate Blood Pressure 108/62 121/59 131/66 Blood Pressure [Left Arm Sitting] Blood Pressure [Left Arm Standing] Blood Pressure [Left Arm Supine] O2 Sat by Pulse 97 100 Oximetry 09/01/23 09/02/23 09/02/23 21:49 03:31 05:31 Temperature Pulse Rate 68 69 61 Pulse Rate [ Sitting Medical Supervisor] Pulse Rate [ Standing Medical Supervisor ] Pulse Rate [ Supine Medical Supervisor] Respiratory 18 18 16 Rate Blood Pressure 124/61 123/72 108/54 Blood Pressure [Left Arm Sitting] Blood Pressure [Left Arm Standing] Blood Pressure [Left Arm Supine] O2 Sat by Pulse 98 96 96 Oximetry 09/02/23 09/02/23 09/02/23 07:04 08:18 10:46 Temperature Pulse Rate 69 66 65 Pulse Rate [ Sitting Medical Supervisor] Pulse Rate [ Standing Medical Supervisor ] Pulse Rate [ Supine Medical Supervisor] Respiratory 18 18 18 Rate Blood Pressure 133/76 137/77 149/93 Blood Pressure [Left Arm Sitting] Blood Pressure [Left Arm Standing] Blood Pressure [Left Arm Supine] O2 Sat by Pulse 97 98 99 Oximetry 09/02/23 09/02/23 09/02/23 11:56 15:15 16:00 Temperature 97.3 F L Pulse Rate 64 Pulse Rate [ 74 Sitting Medical Supervisor] Pulse Rate [ 73 Standing Medical Supervisor ] Pulse Rate [ 65 66 Supine Medical Supervisor] Respiratory 18 18 17 Rate Blood Pressure 122/58 Blood Pressure 198/53 [Left Arm Sitting] Blood Pressure 147/103 [Left Arm Standing] Blood Pressure 151/78 155/88 [Left Arm Supine] O2 Sat by Pulse 97 98 97 Oximetry - Reevaluation(s) Reevaluation #1: 08/31/23 17:42 Medical records reviewed Reevaluation #2: 08/31/23 20:55 Patient needing significant amount of resuscitation here in the emergency depa rtment Reevaluation #3: 08/31/23 20:55 Patient and family informed of results and questions answered Reevaluation #4: Was pt. sent in by a medical professional or institution (, PA, DEICER REPAIRER, urgent care, hospital, or custodial...) When possible be specific @ -no Did you speak to anyone other than the patient for history (EMS, parent, family, police, friend...)? What history was obtained from this source @ -no Did you review nursing and triage notes (agree or disagree)? Why? @ -agree Are old charts reviewed (outside hosp., previous admission, EMS record, old EKG, old radiological studies, urgent care reports/EKG's, custodial records)? Report findings @ -yes Differential Diagnosis (chest pain, altered mental status, abdominal pain women, abdominal pain men, vaginal bleeding, weakness, fever, dyspnea, syncope, headache, dizziness, GI bleed, back pain, seizure, CVA, palpatations, mental health, musculoskeletal)? @ -prior EKG interpreted by me (3pts min.). @ -yes X-rays interpreted by me (1pt min.). @ -yes negative for acute disease CT interpreted by me (1pt min.). @ -yes negative for acute disease U/S interpreted by me (1pt. min.). @ -no What testing was considered but not performed or refused? (CT, X-rays, U/S, labs)? Why? @ -none What meds were considered but not given or refused? Why? @ -none Did you discuss the management of the patient with other professionals (professionals i.e. , PA, DEICER REPAIRER, lab, RT, psych nurse, social worker aide, adjunct writing instructor, teacher, commissioned defence force officer, case management associate)? Give summary @ -no Was smoking cessation discussed for >3mins.? @ -no Was critical care preformed (if so, how long)? @ -no Were there social determinants of health that impacted care today? How? (Homelessness, low income, unemployed, alcoholism, drug addiction, transportation, low edu. Level, literacy, decrease access to med. care, senior living, rehab)? @ -none Was there de-escalation of care discussed even if they declined (Discuss DNR or withdrawal of care, Hospice)? DNR status @ -no What co-morbidities impacted this encounter? (DM, HTN, Smoking, COPD, CAD, Cancer, CVA, ARF, Chemo, Hep., AIDS, mental health diagnosis, sleep apnea, morbid obesity)? @ -none Was patient admitted / discharged? Hospital course, mention meds given and route, prescriptions, significant lab abnormalities, going to OR and other pertinent info. @ - 67 female to ER for evaluation of multiple episodes of recurrent syncope. Severe hydration low blood pressure and new onset renal failure patient will be admitted for monitoring of I's and O's resuscitation and monitoring of syncopal event Admitted Undiagnosed new problem with uncertain prognosis? @ -no Drug Therapy requiring intensive monitoring for toxicity (Heparin, Nitro, Insulin, Cardizem)? @ -no Were any procedures done? @ -no Diagnosis/symptom? @ -Syncope with renal failure and dehydration Acute, or Chronic, or Acute on Chronic? @ -Acute Uncomplicated (without systemic symptoms) or Complicated (systemic symptoms)? @ -Complicated Side effects of treatment? @ -no Exacerbation, Progression, or Severe Exacerbation? @ -exacerbation Poses a threat to life or bodily function? How? (Chest pain, USA, AR, pneumonia, PE, COPD, DKA, ARF, appy, cholecystitis, CVA, Diverticulitis, Homicidal, Suicidal, threat to staff... and all critical care pts) @ -yes with significant renal failure and syncope Reevaluation #5: Differential Syncope: Valvular disease, hypertrophic cardiomyopathy, pulmonary embolism, tamponade, tachycardia, bradycardia, AR, hypovolemia, hemorrhage, dissection, anemia, intracranial hemorrhage, seizure, hypoglycemia, carbon monoxide poisoning, this is not meant to be an all-inclusive list. - Consultations Consultation #1: Spoke with [facility] who agrees to admit this patient EKG Findings - EKG Comments: EKG Findings:: EKG sinus 60 KS 184 QRS 97 QTc 434 - EKG Results: EKG: interpreted by NIKKI Medical Decision Making - Medical Decision Making 67 female to ER for evaluation of multiple episodes of recurrent syncope. Severe hydration low blood pressure and new onset renal failure patient will be admitted for monitoring of I's and O's resuscitation and monitoring of syncopal event - Lab Data Result diagrams: 09/03/23 09:30 09/03/23 09:30 Lab Results 08/31/23 08/31/23 08/31/23 Range/Units 17:52 17:58 17:58 WBC 13.6 H (3.8-10.6) k/uL RBC 4.06 (3.80-5.40) m/uL Hgb 12.4 (11.4-16.0) gm/dL Hct 36.8 (34.0-46.0) % MCV 90.6 (80.0-100.0) fL MCH 30.6 (25.0-35.0) pg MCHC 33.7 (31.0-37.0) g/dL RDW 13.0 (11.5-15.5) % Plt Count 267 (150-450) k/uL MPV 7.7 Neutrophils % 81 % Lymphocytes % 12 % Monocytes % 6 % Eosinophils % 0 % Basophils % 0 % Neutrophils # 11.0 H (1.3-7.7) k/uL Lymphocytes # 1.6 (1.0-4.8) k/uL Monocytes # 0.8 (0-1.0) k/uL Eosinophils # 0.0 (0-0.7) k/uL Basophils # 0.1 (0-0.2) k/uL PT 10.4 (10.0-12.5) sec INR 0.9 (<1.2) APTT 21.2 L (22.0-30.0) sec D-Dimer 0.48 (<0.60) mg/L FEU Sodium (137-145) mmol/L Potassium (3.5-5.1) mmol/L Chloride (98-107) mmol/L Carbon Dioxide (22-30) mmol/L Anion Gap mmol/L BUN (7-17) mg/dL Creatinine (0.52-1.04) mg/dL Est GFR (CKD-EPI)AfAm (>60 ml/min/1.73 sqM) Est GFR (CKD-EPI)NonAf (>60 ml/min/1.73 sqM) Glucose (74-99) mg/dL POC Glucose (mg/dL) 173 H (70-110) mg/dL POC Glu Sports Attorney ID Viral, Millie Lactic Ac Sepsis Rflx Plasma Lactic Acid Mahesh (0.7-2.0) mmol/L Calcium (8.4-10.2) mg/dL Phosphorus (2.5-4.5) mg/dL Magnesium (1.6-2.3) mg/dL Total Bilirubin (0.2-1.3) mg/dL AST (14-36) U/L ALT (4-34) U/L Alkaline Phosphatase (38-126) U/L Troponin I (0.000-0.034) ng/mL NT-Pro-B Natriuret Pep pg/mL Total Protein (6.3-8.2) g/dL Albumin (3.5-5.0) g/dL Urine Color Urine Appearance (Clear) Urine pH (5.0-8.0) Ur Specific [place] (1.001-1.035) Urine Protein (Negative) Urine Glucose (UA) (Negative) Urine Ketones (Negative) Urine Blood (Negative) Urine Nitrite (Negative) Urine Bilirubin (Negative) Urine Urobilinogen (<2.0) mg/dL Ur Leukocyte Esterase (Negative) Urine RBC (0-5) /hpf Urine WBC (0-5) /hpf Ur Squamous Epith Cells (0-4) /hpf Urine Bacteria (None) /hpf Hyaline Casts (0-2) /lpf Urine Mucus (None) /hpf Serum Alcohol mg/dL Influenza Type A (PCR) (Not Detectd) Influenza Type B (PCR) (Not Detectd) RSV (PCR) (Not Detectd) SARS-CoV-2 (PCR) (Not Detectd) 08/31/23 08/31/23 08/31/23 Range/Units 17:58 17:58 17:58 WBC (3.8-10.6) k/uL RBC (3.80-5.40) m/uL Hgb (11.4-16.0) gm/dL Hct (34.0-46.0) % MCV (80.0-100.0) fL MCH (25.0-35.0) pg MCHC (31.0-37.0) g/dL RDW (11.5-15.5) % Plt Count (150-450) k/uL MPV Neutrophils % % Lymphocytes % % Monocytes % % Eosinophils % % Basophils % % Neutrophils # (1.3-7.7) k/uL Lymphocytes # (1.0-4.8) k/uL Monocytes # (0-1.0) k/uL Eosinophils # (0-0.7) k/uL Basophils # (0-0.2) k/uL PT (10.0-12.5) sec INR (<1.2) APTT (22.0-30.0) sec D-Dimer (<0.60) mg/L FEU Sodium 131 L (137-145) mmol/L Potassium 4.6 (3.5-5.1) mmol/L Chloride 97 L (98-107) mmol/L Carbon Dioxide 22 (22-30) mmol/L Anion Gap 12 mmol/L BUN 27 H (7-17) mg/dL Creatinine 2.70 H (0.52-1.04) mg/dL Est GFR (CKD-EPI)AfAm 21 (>60 ml/min/1.73 sqM) Est GFR (CKD-EPI)NonAf 18 (>60 ml/min/1.73 sqM) Glucose 163 H (74-99) mg/dL POC Glucose (mg/dL) (70-110) mg/dL POC Glu Sports Attorney ID Lactic Ac Sepsis Rflx Plasma Lactic Acid Mahesh 2.2 H* (0.7-2.0) mmol/L Calcium 9.1 (8.4-10.2) mg/dL Phosphorus 4.9 H (2.5-4.5) mg/dL Magnesium 1.3 L (1.6-2.3) mg/dL Total Bilirubin 0.6 (0.2-1.3) mg/dL AST 44 H (14-36) U/L ALT 45 H (4-34) U/L Alkaline Phosphatase 73 (38-126) U/L Troponin I <0.012 (0.000-0.034) ng/mL NT-Pro-B Natriuret Pep 254 pg/mL Total Protein 6.3 (6.3-8.2) g/dL Albumin 3.9 (3.5-5.0) g/dL Urine Color Urine Appearance (Clear) Urine pH (5.0-8.0) Ur Specific [place] (1.001-1.035) Urine Protein (Negative) Urine Glucose (UA) (Negative) Urine Ketones (Negative) Urine Blood (Negative) Urine Nitrite (Negative) Urine Bilirubin (Negative) Urine Urobilinogen (<2.0) mg/dL Ur Leukocyte Esterase (Negative) Urine RBC (0-5) /hpf Urine WBC (0-5) /hpf Ur Squamous Epith Cells (0-4) /hpf Urine Bacteria (None) /hpf Hyaline Casts (0-2) /lpf Urine Mucus (None) /hpf Serum Alcohol <10 mg/dL Influenza Type A (PCR) (Not Detectd) Influenza Type B (PCR) (Not Detectd) RSV (PCR) (Not Detectd) SARS-CoV-2 (PCR) (Not Detectd) 08/31/23 08/31/23 08/31/23 Range/Units 18:52 19:00 20:14 WBC (3.8-10.6) k/uL RBC (3.80-5.40) m/uL Hgb (11.4-16.0) gm/dL Hct (34.0-46.0) % MCV (80.0-100.0) fL MCH (25.0-35.0) pg MCHC (31.0-37.0) g/dL RDW (11.5-15.5) % Plt Count (150-450) k/uL MPV Neutrophils % % Lymphocytes % % Monocytes % % Eosinophils % % Basophils % % Neutrophils # (1.3-7.7) k/uL Lymphocytes # (1.0-4.8) k/uL Monocytes # (0-1.0) k/uL Eosinophils # (0-0.7) k/uL Basophils # (0-0.2) k/uL PT (10.0-12.5) sec INR (<1.2) APTT (22.0-30.0) sec D-Dimer (<0.60) mg/L FEU Sodium (137-145) mmol/L Potassium (3.5-5.1) mmol/L Chloride (98-107) mmol/L Carbon Dioxide (22-30) mmol/L Anion Gap mmol/L BUN (7-17) mg/dL Creatinine (0.52-1.04) mg/dL Est GFR (CKD-EPI)AfAm (>60 ml/min/1.73 sqM) Est GFR (CKD-EPI)NonAf (>60 ml/min/1.73 sqM) Glucose (74-99) mg/dL POC Glucose (mg/dL) (70-110) mg/dL POC Glu Sports Attorney ID Lactic Ac Sepsis Rflx Y Plasma Lactic Acid Mahesh (0.7-2.0) mmol/L Calcium (8.4-10.2) mg/dL Phosphorus (2.5-4.5) mg/dL Magnesium (1.6-2.3) mg/dL Total Bilirubin (0.2-1.3) mg/dL AST (14-36) U/L ALT (4-34) U/L Alkaline Phosphatase (38-126) U/L Troponin I (0.000-0.034) ng/mL NT-Pro-B Natriuret Pep pg/mL Total Protein (6.3-8.2) g/dL Albumin (3.5-5.0) g/dL Urine Color Light Yellow Urine Appearance Cloudy H (Clear) Urine pH 5.5 (5.0-8.0) Ur Specific [place] 1.011 (1.001-1.035) Urine Protein Trace H (Negative) Urine Glucose (UA) Negative (Negative) Urine Ketones Negative (Negative) Urine Blood Negative (Negative) Urine Nitrite Negative (Negative) Urine Bilirubin Negative (Negative) Urine Urobilinogen <2.0 (<2.0) mg/dL Ur Leukocyte Esterase Negative (Negative) Urine RBC 1 (0-5) /hpf Urine WBC 2 (0-5) /hpf Ur Squamous Epith Cells 1 (0-4) /hpf Urine Bacteria Rare H (None) /hpf Hyaline Casts 23 H (0-2) /lpf Urine Mucus Few H (None) /hpf Serum Alcohol mg/dL Influenza Type A (PCR) Not Detected (Not Detectd) Influenza Type B (PCR) Not Detected (Not Detectd) RSV (PCR) Not Detected (Not Detectd) SARS-CoV-2 (PCR) Not Detected (Not Detectd) - EKG Data -: EKG Interpreted by Nd - Radiology Data Radiology results: report reviewed (CT brain C-spine chest and pelvis x-ray are negative for acute disease or traumatic injury), image reviewed Critical Care Time Critical Care Time: Yes Total Critical Care Time: 31 Disposition Clinical Impression: Vasovagal syncope, Syncope, Weakness, Dehydration, JUANJOSE (acute kidney injury) Disposition: ADMITTED IP TO THIS [facility] Condition: Serious Is patient prescribed a controlled substance at d/c from ED?: No Time of Disposition: 20:45
[2023-08-31 17:54] LABS: Glucose,Whole Blood 173 mg/dL (70-110)
[2023-08-31] MEDS: SODIUM CHLORIDE 0.9% 1,000 ML IV STA ×2 (18:02→20:19)
[2023-08-31 18:14] LABS: Basophils # (A) 0.1 k/uL (0-0.2); Basophils % (A) 0 %; Eosinophils % (A) 0 %; HCT 36.8 % (34.0-46.0); HGB 12.4 gm/dL (11.4-16.0); Lymphocytes # (A) 1.6 k/uL (1.0-4.8); Lymphocytes % (A) 12 %; MCH 30.6 pg (25.0-35.0); MCHC 33.7 g/dL (31.0-37.0); MCV 90.6 fL (80.0-100.0); Mean Platelet Volume 7.7; Monocytes # (A) 0.8 k/uL (0-1.0); Monocytes % (A) 6 %; Neutrophils % (A) 81 %; Platelet Count 267 k/uL (150-450); RBC 4.06 m/uL (3.80-5.40); WBC 13.6 k/uL (3.8-10.6)
[2023-08-31 18:45] LABS: INR 0.9 (<1.2); Prothrombin Time 10.4 sec (10.0-12.5)
[2023-08-31 18:51] LABS: ALT 45 U/L (4-34); AST 44 U/L (14-36); African American GFR (CKD) 21 (>60 ml/min/1.73 sqM); Albumin 3.9 g/dL (3.5-5.0); Alcohol <10 mg/dL; Alkaline Phosphatase 73 U/L (38-126); Anion Gap 12 mmol/L; Blood Urea Nitrogen 27 mg/dL (7-17); Calcium 9.1 mg/dL (8.4-10.2); Carbon Dioxide 22 mmol/L (22-30); Chloride 97 mmol/L (98-107); Glucose 163 mg/dL (74-99); Magnesium 1.3 mg/dL (1.6-2.3); Non-African American GFR(CKD) 18 (>60 ml/min/1.73 sqM); Phosphorus 4.9 mg/dL (2.5-4.5); Potassium 4.6 mmol/L (3.5-5.1); Sodium 131 mmol/L (137-145); Total Bilirubin 0.6 mg/dL (0.2-1.3); Total Protein 6.3 g/dL (6.3-8.2)
[2023-08-31 18:56] LABS: Partial Thromboplastin Time 21.2 sec (22.0-30.0)
[2023-08-31 18:59] LABS: NT-Pro-B-Type Natriuretic Pept 254 pg/mL
[2023-08-31] MEDS ORDERED: MORPHINE SULFATE 4 MG/ML SYRINGE IV PRN (20:50)
[2023-08-31 21:50] LABS: Appearance,Urine Cloudy (Clear); Bacteria,Urine Rare /hpf; Bilirubin,Urine Negative (Negative); Blood,Urine Negative (Negative); Color,Urine Light Yellow; Glucose,Urine (UA) Negative (Negative); Hyaline Casts,Urine 23 /lpf (0-2); Ketones,Urine Negative (Negative); Leukocyte Esterase,Urine Negative (Negative); Mucus,Urine Few /hpf; Nitrite,Urine Negative (Negative); PH, Urine 5.5 (5.0-8.0); Protein,Urine Trace (Negative); RBC,Urine 1 /hpf (0-5); Specific Gravity,Urine 1.011 (1.001-1.035); Squamous Epithelial Cell,Urine 1 /hpf (0-4); Urobilinogen,Urine <2.0 mg/dL (<2.0); WBC,Urine 2 /hpf (0-5)
--- NOTE | 2023-08-31 21:54 | XR ---
EXAMINATION TYPE: XR pelvis AP view DATE OF EXAM: 08/31/2023 9:14 PM CLINICAL INDICATION:Female, 67 years old with history of fall; COMPARISON: 08/04/2018. TECHNIQUE: The pelvis was examined in a single projection. FINDINGS: There is no evidence of fracture or dislocation. There is no soft tissue abnormality. No a bnormal calcifications are present. The spine appears intact. The hips appear intact. Osteophyte form ation of the superior acetabulum bilaterally with mild joint space narrowing. IMPRESSION: No acute osseous pathology. Mild degeneration changes of the hip.
--- NOTE | 2023-08-31 21:54 | XR ---
EXAMINATION TYPE: XR chest 1V DATE OF EXAM: 08/31/2023 9:14 PM CLINICAL INDICATION:Female, 67 years old with history of fall; COMPARISON: Chest radiographs from 01/17/2022 TECHNIQUE: XR chest 1V Frontal view of the chest. FINDINGS: Lungs/Pleura: There is no evidence of pleural effusion, focal consolidation, or pneumothorax. Pulmonary vascularity: Unremarkable. Heart/mediastinum: Cardiomediastinal silhouette is unremarkable. Musculoskeletal: No acute osseous pathology. IMPRESSION: No acute cardiopulmonary disease/process.
--- NOTE | 2023-08-31 22:03 | CT ---
EXAMINATION TYPE: CT brain cspine wo con CT DLP: 1469.7 mGycm, Automated exposure control for dose reduction was used. DATE OF EXAM: 08/31/2023 9:44 PM COMPARISON: 08/04/2018. CLINICAL INDICATION:Female, 67 years old with history of ams; pt presents with multiple syncopal epis odes and lethargy. TECHNIQUE: Brain: Multiple axial CT images of the brain were obtained without IV contrast. Cspine: Axial CT images from the skull base to the inferior aspect of T2 we obtained without intraven ous contrast. Coronal and sagittal reformatted images were also reviewed. FINDINGS: Brain: Extra-axial spaces: No abnormal extra-axial fluid collections. Ventricular system: Within normal limits cavum septum pellucidum et vergae similar to prior. Cerebral parenchyma: No acute intraparenchymal hemorrhage or mass effect. The cobb-white junction is well differentiated. Scattered hypoattenuating areas are seen within the white matter. Cerebellum: Unremarkable. Mass effect: No evidence of midline shift. Intracranial vasculature: Atherosclerotic calcifications of the intracranial vessels. Soft tissues: Normal. Calvarium/osseous structures: No depressed skull fracture. Paranasal sinuses and mastoid air cells: Clear. Visualized orbits: Orbital contents are intact. Cervical spine: Fracture: None. Osseous structures: Multilevel degenerative disc disease changes with endplate spurring and disc oste ophyte complex's. Vertebral alignment: Anterolisthesis of C3 on C4 and C4 on C5. Spinal canal/Neural Foramina: Disc osteophyte complexes at C5-C6 with at least mild spinal canal sten osis. No evidence for significant neural foraminal stenosis. Neck soft tissues: Prevertebral soft tissues are within normal limits. Other: The airway is patent. The lung apices are clear. IMPRESSION: 1. No acute intracranial process. 2. Nonspecific white matter changes, likely secondary to chronic small vessel ischemic disease. 3. No evidence of cervical spine fracture. 4. Moderate multilevel degenerative disc disease.
[2023-08-31] MEDS: MAGNESIUM SULFATE-D5W PMX 1 GM in DEXTROSE/WATER 1 100ML.BAG IVPB SCH (22:34)
[2023-08-31] MEDS: SODIUM CHLORIDE 0.9% 1,000 ML IV SCH (22:38)
[2023-09-01] MEDS ORDERED: ONDANSETRON ODT 8 MG TAB.RAPDIS PO PRN (08:02)
[2023-09-01] MEDS ORDERED: ACETAMINOPHEN TAB 500 MG TAB PO PRN (08:02)
[2023-09-01] MEDS ORDERED: DEXTROSE 50% SYRINGE 50 ML IVP PRN (08:34)
[2023-09-01 08:56] LABS: Basophils # (A) 0.1 k/uL (0-0.2); Basophils % (A) 1 %; Eosinophils % (A) 0 %; HCT 33.5 % (34.0-46.0); HGB 11.4 gm/dL (11.4-16.0); Lymphocytes # (A) 2.3 k/uL (1.0-4.8); Lymphocytes % (A) 25 %; MCH 31.1 pg (25.0-35.0); MCHC 34.1 g/dL (31.0-37.0); MCV 91.4 fL (80.0-100.0); Mean Platelet Volume 7.9; Monocytes # (A) 0.8 k/uL (0-1.0); Monocytes % (A) 8 %; Neutrophils # (A) 6.1 k/uL (1.3-7.7); Neutrophils % (A) 65 %; Platelet Count 203 k/uL (150-450); RBC 3.67 m/uL (3.80-5.40); WBC 9.5 k/uL (3.8-10.6)
[2023-09-01 08:57] LABS: ALT 37 U/L (4-34); AST 36 U/L (14-36); African American GFR (CKD) 48 (>60 ml/min/1.73 sqM); Albumin 3.3 g/dL (3.5-5.0); Alkaline Phosphatase 64 U/L (38-126); Anion Gap 9 mmol/L; Blood Urea Nitrogen 17 mg/dL (7-17); Calcium 8.2 mg/dL (8.4-10.2); Carbon Dioxide 20 mmol/L (22-30); Chloride 104 mmol/L (98-107); Glucose 140 mg/dL (74-99); Magnesium 1.7 mg/dL (1.6-2.3); Non-African American GFR(CKD) 42 (>60 ml/min/1.73 sqM); Phosphorus 3.6 mg/dL (2.5-4.5); Sodium 133 mmol/L (137-145); Total Bilirubin 0.5 mg/dL (0.2-1.3); Total Protein 5.6 g/dL (6.3-8.2)
--- NOTE | 2023-09-01 09:03 | P.HPIM ---
History of Present Illness H&P Date: 09/01/23 Chief Complaint: Syncopal episodes This is a 67-year-old female who presented to the emergency department yesterday after 3 syncopal episodes yesterday. Patient reports she has been out of town in [place] and got home on Friday. Since getting home she had felt fatigued and faint. On Friday patient reports it felt like her body was "vibrating". Patient was hypotensive on admission. Labs reveal decreased kidney function on admission, creatinine is improved today. She remains on IV fluids. Patient reports blood sugar has been stable at home. Further medical history as noted below. Review of Systems Constitutional: Reports fatigue, Denies chills, Denies fever Cardiovascular: Reports syncope, Denies chest pain, Denies dyspnea on exertion Respiratory: Denies cough, Denies dyspnea Gastrointestinal: Denies abdominal pain, Denies nausea, Denies vomiting Musculoskeletal: Denies arm numbness/tingling, Denies leg numbness/tingling Neurological: Reports syncope, Reports weakness Past Medical History Past Medical History: Asthma, Diabetes Mellitus, GERD/Reflux, Hyperlipidemia, Hypertension, Osteoarthritis (OA), Thyroid Disorder Additional Past Medical History / Comment(s): Hypothyroidism, seasonal ALLERGIES, type 2 diabetes, chronic back pain, Restless Leg syndrome. 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 History of Any Multi-Drug Resistant Organisms: None Reported Past Surgical History: Adenoidectomy, Section, Cholecystectomy, Tonsillectomy, Tubal Ligation Additional Past Surgical History / Comment(s): section 2. Colonoscopy 2017(next after 10yr) Past Anesthesia/Blood Transfusion Reactions: Postoperative Nausea & Vomiting (PONV) Past Psychological History: Depression Smoking Status: Never smoker Past Alcohol Use History: Occasional Past Drug Use History: None Reported - Past Family History Mother Family Medical History: No Reported History Brother(s) Family Medical History: Myocardial Infarction ([place]) Father Family Medical History: Diabetes Mellitus Medications and Allergies Home Medications Medication Instructions Recorded Confirmed Type Levothyroxine Sodium [Synthroid] 75 mcg PO DAILY 03/02/14 08/31/23 History Meloxicam 7.5 mg PO BID 03/02/14 08/31/23 History Montelukast Sodium [Singulair] 10 mg PO HS 03/02/14 08/31/23 History lisinopriL [Lisinopril] 40 mg PO DAILY 03/02/14 08/31/23 History Pregabalin [Lyrica] 225 mg PO BID 09/12/14 08/31/23 History Simvastatin [Zocor] 40 mg PO HS 05/27/16 08/31/23 History metFORMIN HCL [Glucophage] 500 mg PO BID-W/MEALS 08/04/18 08/31/23 History Pantoprazole [Protonix] 40 mg PO DAILY 03/02/20 08/31/23 History Venlafaxine HCl [Effexor XR] 150 mg PO DAILY 03/02/20 08/31/23 History oxyCODONE HCL/ACETAMINOPHEN 1 tab PO TID PRN 01/17/22 08/31/23 History [Percocet 5-325 mg] Acetaminophen Tab [Tylenol Tab] 500 mg PO Q6H PRN 08/31/23 08/31/23 History Bimatoprost [Lumigan 0.01% Ophth 1 drop BOTH EYES HS 08/31/23 08/31/23 History Soln] Bisoprolol-Hctz 10-6.25 mg [Ziac 1 tab PO DAILY 08/31/23 08/31/23 History 10-6.25 MG] Ondansetron Odt [Zofran Odt] 8 mg PO Q12HR PRN 08/31/23 08/31/23 History Allergies Allergy/AdvReac Type Severity Reaction Status Date / Time monosodium glutamate Allergy Anaphylaxis Verified 08/31/23 17:21 codeine phosphate AdvReac Vomiting Verified 08/31/23 17:21 [From Tylenol-Codeine] hydrocodone bitartrate AdvReac Vomiting Verified 08/31/23 17:21 [From Vicodin] tramadol AdvReac DIZZINESS Verified 08/31/23 17:21 Physical Exam Vitals: Vital Signs Temp Pulse Resp BP Pulse Ox 09/01/23 06:55 64 16 100/50 96 09/01/23 04:08 60 16 100/54 98 08/31/23 22:28 71 18 106/67 99 08/31/23 21:00 72 18 106/54 97 08/31/23 20:12 70 16 103/64 97 08/31/23 18:32 65 16 69/40 96 08/31/23 17:12 97.4 F L 63 16 84/45 95 Intake and Output 08/31/23 09/01/23 09/01/23 22:59 06:59 14:59 Other: Weight 90.265 kg - Constitutional General appearance: cooperative, no acute distress - EENT Eyes: PERRLA - Neck Neck: no lymphadenopathy, normal ROM, no rigidity - Respiratory Respiratory: bilateral: CTA - Cardiovascular Rhythm: regular Heart sounds: normal: S1, S2 - Gastrointestinal General gastrointestinal: soft, no tenderness - Integumentary Integumentary: normal, normal turgor - Neurologic Neurologic: CNII-XII intact - Psychiatric Psychiatric: A&O x's 3, appropriate affect, intact judgment & insight Results CBC & Chem 7: 08/31/23 17:58 08/31/23 17:58 Labs: Abnormal Lab Results - Last 24 Hours (Table) 08/31/23 08/31/23 08/31/23 Range/Units 17:52 17:58 17:58 WBC 13.6 H (3.8-10.6) k/uL Neutrophils # 11.0 H (1.3-7.7) k/uL APTT 21.2 L (22.0-30.0) sec Sodium (137-145) mmol/L Chloride (98-107) mmol/L BUN (7-17) mg/dL Creatinine (0.52-1.04) mg/dL Glucose (74-99) mg/dL POC Glucose (mg/dL) 173 H (70-110) mg/dL Plasma Lactic Acid Mahesh (0.7-2.0) mmol/L Phosphorus (2.5-4.5) mg/dL Magnesium (1.6-2.3) mg/dL AST (14-36) U/L ALT (4-34) U/L Urine Appearance (Clear) Urine Protein (Negative) Urine Bacteria (None) /hpf Hyaline Casts (0-2) /lpf Urine Mucus (None) /hpf 08/31/23 08/31/23 08/31/23 Range/Units 17:58 17:58 18:52 WBC (3.8-10.6) k/uL Neutrophils # (1.3-7.7) k/uL APTT (22.0-30.0) sec Sodium 131 L (137-145) mmol/L Chloride 97 L (98-107) mmol/L BUN 27 H (7-17) mg/dL Creatinine 2.70 H (0.52-1.04) mg/dL Glucose 163 H (74-99) mg/dL POC Glucose (mg/dL) (70-110) mg/dL Plasma Lactic Acid Mahesh 2.2 H* (0.7-2.0) mmol/L Phosphorus 4.9 H (2.5-4.5) mg/dL Magnesium 1.3 L (1.6-2.3) mg/dL AST 44 H (14-36) U/L ALT 45 H (4-34) U/L Urine Appearance Cloudy H (Clear) Urine Protein Trace H (Negative) Urine Bacteria Rare H (None) /hpf Hyaline Casts 23 H (0-2) /lpf Urine Mucus Few H (None) /hpf Assessment and Plan (1) Syncope Current Visit: Yes Status: Acute Code(s): R55 - SYNCOPE AND COLLAPSE SNOMED Code(s): 201167602 (2) JUANJOSE (acute kidney injury) Current Visit: Yes Status: Acute Code(s): N17.9 - ACUTE KIDNEY FAILURE, UNSPECIFIED SNOMED Code(s): 28665449 (3) Type 2 diabetes mellitus Current Visit: Yes Status: Acute Code(s): E11.9 - TYPE 2 DIABETES MELLITUS WITHOUT COMPLICATIONS SNOMED Code(s): 61808353 (4) Dehydration Current Visit: Yes Status: Acute Code(s): E86.0 - DEHYDRATION SNOMED Code(s): 57652033 (5) Hyperlipidemia Current Visit: No Status: Acute Code(s): E78.5 - HYPERLIPIDEMIA, UNSPECIFIED SNOMED Code(s): 82548045 Plan: Continue home medications. Start Accu-Cheks and sliding scale insulin coverage. Order echo and carotid. Consult to cardiology and neurology for syncopal episodes CBC and CMP in the morning. Patient seen and evaluated by nurse practitioner, physician in agreement with plan
[2023-09-01] MEDS: metFORMIN 500 MG TAB PO SCH (10:21)
[2023-09-01] MEDS: MELOXICAM 7.5 MG TAB PO SCH (10:21)
[2023-09-01] MEDS: BISOPROLOL-HCTZ 10-6.25 MG 1 EACH TAB PO SCH (10:21)
[2023-09-01] MEDS: PREGABALIN 75 MG CAP PO SCH (10:21)
[2023-09-01] MEDS: VENLAFAXINE HCL ER 150 MG CAP PO SCH (10:21)
[2023-09-01] MEDS: lisinopriL 20 MG TAB PO SCH (10:21)
[2023-09-01] MEDS: LEVOTHYROXINE 75 MCG TAB PO SCH (10:21)
[2023-09-01] MEDS: PANTOPRAZOLE 40 MG TABLET PO SCH (10:22)
--- NOTE | 2023-09-01 11:29 | US ---
EXAMINATION TYPE: US carotid duplex BILAT DATE OF EXAM: 09/01/2023 COMPARISON: NONE CLINICAL INDICATION: Female, 67 years old with history of syncope; Syncope. Hx diabetes, hypertension , hyperlipidemia. TECHNIQUE: Carotid duplex ultrasound examination. Indirect Doppler criteria was utilized. FINDINGS: EXAM MEASUREMENTS: RIGHT: Peak Systolic Velocity (PSV) cm/sec ----- Right CCA: 62.5 ----- Right ICA: 82.3 ----- Right ECA: 69.4 ICA/CCA ratio: 1.3 RIGHT: End Diastole cm/sec ----- Right CCA: 11.9 ----- Right ICA: 28.5 ----- Right ECA: 9.2 LEFT: Peak Systolic Velocity (PSV) cm/sec ----- Left CCA: 66.9 ----- Left ICA: 91.0 ----- Left ECA: 77.6 ICA/CCA ratio: 1.4 LEFT: End Diastole cm/sec ----- Left CCA: 21.9 ----- Left ICA: 28.2 ----- Left ECA: 9.5 VERTEBRALS (direction of flow): Right Vertebral: Antegrade Left Vertebral: Antegrade Rhythm: Normal INVESTIGATION OFFICER NOTES: Plaque seen within bilateral bulbs and prox right ICA. Right vertebral artery- higher velocity when compared to left. Right vertebral PS 97.8 cm/s. IMPRESSION: 1. No evidence of significant carotid artery hemodynamic stenosis bilaterally. 2. Elevated velocity within the right vertebral artery can be associated with vertebral artery diseas e correlate clinically. Criteria for Assigning % of Stenosis / Diameter reduction (Estimation based on the indirect measurements of the internal carotid artery velocities (ICA PSV). 1. Normal (no stenosis)=ICA PSV < 125 cm/s: ratio < 2.0: ICA EDV<40 cm/s. 2. Less than 50% stenosis=ICA PSV < 125 cm/s: ratio < 2.0: ICA EDV<40 cm/s. 3. 50 to 69% stenosis=ICA PSV of 125 to 230 cm/s: ration 2.0 ? 4.0: ICA EDV 40-100 cm/s. 4. Greater than 70% stenosis to near occlusion= ICA PSV > 230 cm/s: ratio > 4.0: ICA EDV > 100 cm/s. 5. Near occlusion= ICA PSV velocities may be low or undetectable: variable ratio and ICA EDV. 6. Total occlusion=unable to detect flow.
[2023-09-01 12:52] LABS: Glucose,Whole Blood 262 mg/dL (70-110)
--- NOTE | 2023-09-01 13:27 | P.NPCON ---
History of Present Illness - Reason for Consult acute renal failure - History of Present Illness patient is a 67-year-old female with history of type 2 diabetes, hypertension, hyperlipidemia who was admitted to the hospital with complaints of weakness and having passed out. Blood pressure was low with systolic at 69 mmHg. Currently maintained on IV fluids. No history of kidney diseases. Serum creatinine was 2.7 yesterday and it is down to 1.3 today. Previous creatinine 0.7 on 08/04/2018. Meloxicam and lisinopril noted on home med list. patient has been voiding. Review of Systems as per HPI. 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 History of Any Multi-Drug Resistant Organisms: None Reported Past Surgical History: Adenoidectomy, Section, Cholecystectomy, Tonsillectomy, Tubal Ligation Additional Past Surgical History / Comment(s): section 2. Colonoscopy 2017(next after 10yr) Past Anesthesia/Blood Transfusion Reactions: Postoperative Nausea & Vomiting (PONV) Past Psychological History: Depression Smoking Status: Never smoker Past Alcohol Use History: Occasional Past Drug Use History: None Reported - Past Family History Mother Family Medical History: No Reported History Brother(s) Family Medical History: Myocardial Infarction ([place]) Father Family Medical History: Diabetes Mellitus Medications and Allergies Home Medications Medication Instructions Recorded Confirmed Type Levothyroxine Sodium [Synthroid] 75 mcg PO DAILY 03/02/14 08/31/23 History Meloxicam 7.5 mg PO BID 03/02/14 08/31/23 History Montelukast Sodium [Singulair] 10 mg PO HS 03/02/14 08/31/23 History lisinopriL [Lisinopril] 40 mg PO DAILY 03/02/14 08/31/23 History Pregabalin [Lyrica] 225 mg PO BID 09/12/14 08/31/23 History Simvastatin [Zocor] 40 mg PO HS 05/27/16 08/31/23 History metFORMIN HCL [Glucophage] 500 mg PO BID-W/MEALS 08/04/18 08/31/23 History Pantoprazole [Protonix] 40 mg PO DAILY 03/02/20 08/31/23 History Venlafaxine HCl [Effexor XR] 150 mg PO DAILY 03/02/20 08/31/23 History oxyCODONE HCL/ACETAMINOPHEN 1 tab PO TID PRN 01/17/22 08/31/23 History [Percocet 5-325 mg] Acetaminophen Tab [Tylenol Tab] 500 mg PO Q6H PRN 08/31/23 08/31/23 History Bimatoprost [Lumigan 0.01% Ophth 1 drop BOTH EYES HS 08/31/23 08/31/23 History Soln] Bisoprolol-Hctz 10-6.25 mg [Ziac 1 tab PO DAILY 08/31/23 08/31/23 History 10-6.25 MG] Ondansetron Odt [Zofran Odt] 8 mg PO Q12HR PRN 08/31/23 08/31/23 History Allergies Allergy/AdvReac Type Severity Reaction Status Date / Time monosodium glutamate Allergy Anaphylaxis Verified 08/31/23 17:21 codeine phosphate AdvReac Vomiting Verified 08/31/23 17:21 [From Tylenol-Codeine] hydrocodone bitartrate AdvReac Vomiting Verified 08/31/23 17:21 [From Vicodin] tramadol AdvReac DIZZINESS Verified 08/31/23 17:21 Physical Exam Vitals: Vital Signs Temp Pulse Resp BP Pulse Ox 09/01/23 12:05 98.0 F 61 17 115/76 97 09/01/23 10:15 97.9 F 65 17 105/72 97 09/01/23 06:55 64 16 100/50 96 09/01/23 04:08 60 16 100/54 98 08/31/23 22:28 71 18 106/67 99 08/31/23 21:00 72 18 106/54 97 08/31/23 20:12 70 16 103/64 97 08/31/23 18:32 65 16 69/40 96 08/31/23 17:12 97.4 F L 63 16 84/45 95 Intake and Output 08/31/23 09/01/23 09/01/23 22:59 06:59 14:59 Output Total 1050 Balance -1050 Output: Urine 1050 Uretheral (Moran) 1050 Other: Weight 90.265 kg patient is awake, comfortable, no acute distress Examination of the heart S1 and S2 Examination of the lungs bilateral breath sounds are heard Abdomen is soft nontender Examination of lower extremities shows no significant edema SURGERY TECHNICIAN exam grossly intact Results - Lab Results Most recent lab results Calcium 8.2 mg/dL (8.4-10.2) L 09/01/23 07:56 Phosphorus 3.6 mg/dL (2.5-4.5) 09/01/23 07:56 Magnesium 1.7 mg/dL (1.6-2.3) 09/01/23 07:56 09/01/23 07:56 09/01/23 07:56 Assessment and Plan Assessment: 1. Acute kidney injury, ATN, nonoliguric secondary to hypotension in the setting of use of hemalatha inhibitors and NSAIDs, currently improved. UA is benign with trace protein. 2. Hypotension associated with hypovolemia, maintained on IV fluids. Continue to hold antihypertensive medications. 3. Syncope secondary to hypotension 4. Hypovolemic hyponatremia improving with IV hydration Plan: continue with IV fluids Check ultrasound of the kidneys Continue to hold HEMALATHA inhibitor's Avoid use of NSAIDs. Thank you for the consultation. We will continue to follow the patient with you during her hospitalization.
--- NOTE | 2023-09-01 14:17 | US ---
EXAMINATION TYPE: US kidneys/renal and bladder DATE OF EXAM: 09/01/2023 COMPARISON: 09/30/2019 US 09/15/2014 CLINICAL INDICATION: Female, 67 years old with history of claudia; HX HTN and DM; Patient denies any sign s or symptoms EXAM MEASUREMENTS: Right Kidney: 10.3 x 5.3 x 4.9 cm Left Kidney: 10.6 x 6.2 x 4.8 cm Post Void Residual Volume: NA mL Right Kidney: WNL Left Kidney: WNL Bladder: Not fully distended - newman noted within Bilateral Jets seen: Not able to assess Normal Post Void Residual: NA Renal cortex echogenicity and thickness and normal bilaterally. IMPRESSION: 1. No acute process. Limited assessment of the bladder due to Newman catheter.
--- NOTE | 2023-09-01 14:41 | P.CRDCN ---
History of Present Illness History of present illness: HISTORY OF PRESENT ILLNESS: This is a 67-year-old female with a past medical history significant for hypertension, hyperlipidemia, diabetes, obstructive sleep apnea, and marijuana use. 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 We have been asked to see the patient in consultation for syncope. Patient examined at the bedside in the emergency room. The patient recently was on vacation in [place]. Apparently, before she left for vacation she was feeling nauseated and was pr escribed Zofran. Patient returned home this weekend. She states yesterday morning she went to [facility] in the morning. When she returned home she states that she had 3 episodes of syncope. She states these episodes occurred when she was changing positions from a supine to a standing position. She states that she had no warning sign she was going to pass out. She states she was only out for a few seconds. She denies any urinary incontinence. Patient was found to have acute kidney injury with a creatinine of 2.7 on admission. Repeat creatinine 1.33 today. Patient does report having chronic diarrhea. Patient was also found to be hypotensive with blood pressure readings of 69/40 and 84/45 in the emergency room. Blood pressure has since improved. Patient denies any tobacco use. She does report marijuana use. She reports occasional alcohol use. DIAGNOSTICS: - EKG reveals sinus mechanism with no signs of acute ischemia - Chest xray negative for acute process - Laboratory data: WBC 9.5. Hemoglobin 11.4. Platelet count 203. Sodium 133. Potassium 4.0. BUN 17. Creatinine 1.33. - Current home cardiac medications include lisinopril 40 mg daily, bisoprololhydrochlorothiazide 10-6.25 mg daily, simvastatin 40 mg at night. REVIEW OF SYSTEMS: At the time of my exam: CONSTITUTIONAL: Denies fever or chills. HEENT: Denies blurred vision, vision changes, or eye pain. Denies hemoptysis CARDIOVASCULAR: Denies chest pain. Denies orthopnea. Denies PND. Denies palpitations RESPIRATORY: Denies shortness of breath. GASTROINTESTINAL: Denies abdominal pain. Denies nausea or vomiting. HEMATOLOGIC: Denies bleeding disorders. GENITOURINARY: Denies any blood in urine. SKIN: Denies pruitis. Denies rash. PHYSICAL EXAM: VITAL SIGNS: Reviewed. GENERAL: Well-developed in no acute distress. HEENT: Head is normocephalic. Pupils are equal, round. Sclerae anicteric. Mucous membranes of the mouth are moist. Neck supple. No JVD or thyromegaly LUNGS: Respirations even and unlabored. Lungs essentially clear to auscultation bilaterally. HEART: Regular rate and rhythm. S1 and S2 heard. ABDOMEN: Soft. Nondistended. Nontender. Systolic murmur noted. EXTREMITIES: Normal range of motion. No clubbing or cyanosis. Peripheral pulses intact. No lower extremity edema NEUROLOGIC: Awake and alert. Oriented x 3. ASSESSMENT: Syncope, suspect secondary to hypotension Hypotension, resolved Acute kidney injury History of hypertension History of hyperlipidemia Diabetes Obstructive sleep apnea Marijuana use Chronic diarrhea, per patient PLAN: Suspect syncopal episodes are due to significant hypotension Continue telemetry monitoring to assess for any arrhythmias Obtain 2D echo to assess cardiac structure and function Hold all antihypertensive medications for today Discontinue meloxicam Repeat kidney function in a.m Further recommendations pending patient course Nurse practitioner note has been reviewed by physician. Signing provider agrees with the documented findings, assessment, and plan of care documented by DEMI CHEF as a scribe. 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 History of Any Multi-Drug Resistant Organisms: None Reported Past Surgical History: Adenoidectomy, Section, Cholecystectomy, Tonsillectomy, Tubal Ligation Additional Past Surgical History / Comment(s): section 2. Colonoscopy 2017(next after 10yr) Past Anesthesia/Blood Transfusion Reactions: Postoperative Nausea & Vomiting (PONV) Past Psychological History: Depression Smoking Status: Never smoker Past Alcohol Use History: Occasional Past Drug Use History: None Reported - Past Family History Mother Family Medical History: No Reported History Brother(s) Family Medical History: Myocardial Infarction ([place]) Father Family Medical History: Diabetes Mellitus Medications and Allergies Home Medications Medication Instructions Recorded Confirmed Type Levothyroxine Sodium [Synthroid] 75 mcg PO DAILY 03/02/14 08/31/23 History Meloxicam 7.5 mg PO BID 03/02/14 08/31/23 History Montelukast Sodium [Singulair] 10 mg PO HS 03/02/14 08/31/23 History lisinopriL [Lisinopril] 40 mg PO DAILY 03/02/14 08/31/23 History Pregabalin [Lyrica] 225 mg PO BID 09/12/14 08/31/23 History Simvastatin [Zocor] 40 mg PO HS 05/27/16 08/31/23 History metFORMIN HCL [Glucophage] 500 mg PO BID-W/MEALS 08/04/18 08/31/23 History Pantoprazole [Protonix] 40 mg PO DAILY 03/02/20 08/31/23 History Venlafaxine HCl [Effexor XR] 150 mg PO DAILY 03/02/20 08/31/23 History oxyCODONE HCL/ACETAMINOPHEN 1 tab PO TID PRN 01/17/22 08/31/23 History [Percocet 5-325 mg] Acetaminophen Tab [Tylenol Tab] 500 mg PO Q6H PRN 08/31/23 08/31/23 History Bimatoprost [Lumigan 0.01% Ophth 1 drop BOTH EYES HS 08/31/23 08/31/23 History Soln] Bisoprolol-Hctz 10-6.25 mg [Ziac 1 tab PO DAILY 08/31/23 08/31/23 History 10-6.25 MG] Ondansetron Odt [Zofran Odt] 8 mg PO Q12HR PRN 08/31/23 08/31/23 History Allergies Allergy/AdvReac Type Severity Reaction Status Date / Time monosodium glutamate Allergy Anaphylaxis Verified 08/31/23 17:21 codeine phosphate AdvReac Vomiting Verified 08/31/23 17:21 [From Tylenol-Codeine] hydrocodone bitartrate AdvReac Vomiting Verified 08/31/23 17:21 [From Vicodin] tramadol AdvReac DIZZINESS Verified 08/31/23 17:21 Physical Exam Vitals: Vital Signs Temp Pulse Resp BP Pulse Ox 09/01/23 12:05 98.0 F 61 17 115/76 97 09/01/23 10:15 97.9 F 65 17 105/72 97 09/01/23 06:55 64 16 100/50 96 09/01/23 04:08 60 16 100/54 98 08/31/23 22:28 71 18 106/67 99 04/28/24 21:00 72 18 106/54 97 08/31/23 20:12 70 16 103/64 97 08/31/23 18:32 65 16 69/40 96 08/31/23 17:12 97.4 F L 63 16 84/45 95 Intake and Output 08/31/23 09/01/23 09/01/23 22:59 06:59 14:59 Output Total 1050 Balance -1050 Output: Urine 1050 Uretheral (Moran) 1050 Other: Weight 90.265 kg Results 09/01/23 07:56 09/01/23 07:56 Cardiac Enzymes 08/31/23 08/31/23 09/01/23 Range/Units 17:58 17:58 07:56 AST 44 H 36 (14-36) U/L Troponin I <0.012 (0.000-0.034) ng/mL Coagulation 08/31/23 Range/Units 17:58 PT 10.4 (10.0-12.5) sec APTT 21.2 L (22.0-30.0) sec CBC 08/31/23 09/01/23 Range/Units 17:58 07:56 WBC 13.6 H 9.5 (3.8-10.6) k/uL RBC 4.06 3.67 L (3.80-5.40) m/uL Hgb 12.4 11.4 (11.4-16.0) gm/dL Hct 36.8 33.5 L (34.0-46.0) % Plt Count 267 203 (150-450) k/uL Comprehensive Metabolic Panel 08/31/23 09/01/23 Range/Units 17:58 07:56 Sodium 131 L 133 L (137-145) mmol/L Potassium 4.6 4.0 (3.5-5.1) mmol/L Chloride 97 L 104 (98-107) mmol/L Carbon Dioxide 22 20 L (22-30) mmol/L BUN 27 H 17 (7-17) mg/dL Creatinine 2.70 H 1.33 H (0.52-1.04) mg/dL Glucose 163 H 140 H (74-99) mg/dL Calcium 9.1 8.2 L (8.4-10.2) mg/dL AST 44 H 36 (14-36) U/L ALT 45 H 37 H (4-34) U/L Alkaline Phosphatase 73 64 (38-126) U/L Total Protein 6.3 5.6 L (6.3-8.2) g/dL Albumin 3.9 3.3 L (3.5-5.0) g/dL Current Medications Generic Name Dose Route Start Last Admin Trade Name Freq PRN Reason Stop Dose Admin Acetaminophen 500 mg 09/01/23 08:02 Acetaminophen Tab 500 Mg Tab PO Q6H PRN Fever and/ or Mild Pain Atorvastatin Calcium 20 mg 09/01/23 21:00 Atorvastatin 20 Mg Tab PO HS TARA Bisoprolol Fumarate 1 each 09/01/23 09:00 09/01/23 10:21 Bisoprolol-Hctz 10-6.25 Mg 1 Each Tab PO 1 each DAILY TARA Administration Dextrose/Water 50 ml 09/01/23 08:34 Dextrose 50% Syringe 50 Ml IVP PER PROTOCOL PRN Hypoglycemia Protocol Sodium Chloride 1,000 mls @ 75 mls/hr 08/31/23 21:00 09/01/23 10:24 Saline 0.9% IV Not Given .[id number] TARA Latanoprost 1 drops 09/01/23 21:00 Latanoprost 0.005% Ophth Drops 2.5 Ml Btl BOTH EYES HS TARA Levothyroxine Sodium 75 mcg 09/01/23 09:00 09/01/23 10:21 Levothyroxine 75 Mcg Tab PO 75 mcg DAILY@0630 TARA Administration Lisinopril 40 mg 09/01/23 09:00 09/01/23 10:21 Lisinopril 20 Mg Tab PO 40 mg DAILY TARA Administration Meloxicam 7.5 mg 09/01/23 09:00 09/01/23 10:21 Meloxicam 7.5 Mg Tab PO 7.5 mg BID TARA Administration Metformin HCl 500 mg 09/01/23 08:15 09/01/23 10:21 Metformin 500 Mg Tab PO 500 mg BID-W/MEALS TARA Administration Montelukast Sodium 10 mg 09/01/23 21:00 Montelukast 10 Mg Tab PO HS TARA Morphine Sulfate 4 mg 08/31/23 20:50 Morphine Sulfate 4 Mg/Ml Syringe IV Q4HR PRN Severe Pain (Scale 7 to 10) Ondansetron HCl 4 mg 08/31/23 20:50 Ondansetron 4 Mg/2 Ml Vial IVP Q8HR PRN Nausea And Vomiting Ondansetron HCl 8 mg 09/01/23 08:02 Ondansetron Odt 8 Mg Tab.Rapdis PO Q12HR PRN Nausea And Vomiting Pantoprazole Sodium 40 mg 09/01/23 09:00 09/01/23 10:22 Pantoprazole 40 Mg Tablet PO 40 mg [id number] TARA Administration Pregabalin 225 mg 09/01/23 09:00 09/01/23 10:21 Pregabalin 75 Mg Cap PO 225 mg BID TARA Administration Venlafaxine HCl 150 mg 09/01/23 09:00 09/01/23 10:21 Venlafaxine Hcl Er 150 Mg Cap PO 150 mg DAILY TARA Administration Intake and Output 08/31/23 09/01/23 09/01/23 22:59 06:59 14:59 Output Total 1050 Balance -1050 Output: Urine 1050 Uretheral (Moran) 1050 Other: Weight 90.265 kg 09/01/23 07:56 09/01/23 07:56
[2023-09-01 17:59] LABS: Glucose,Whole Blood 163 mg/dL (70-110)
[2023-09-01] MEDS: ATORVASTATIN 20 MG TAB PO SCH (21:45)
[2023-09-01] MEDS: MONTELUKAST 10 MG TAB PO SCH (21:45)
[2023-09-01] MEDS: LATANOPROST 0.005% OPHTH DROPS 2.5 ML BTL BOTH EYES SCH (21:48)
[2023-09-02 08:22] LABS: Glucose,Whole Blood 154 mg/dL (70-110)
--- NOTE | 2023-09-02 08:40 | P.PN ---
Subjective Progress Note Date: 09/02/23 Principal diagnosis: Syncopal episodes This is a 67-year-old female who presented to the emergency department after 3 syncopal episodes at home on Friday. Patient had been traveling recently and had been feeling quite fatigued and faint. She was hypotensive on admission. Creatinine also elevated on admission and is improving. Blood pressure has normalized. Kidney ultrasound was normal. Carotid Doppler was completed yesterday and was normal. Echo has been ordered but not completed yet. Patient reports she is feeling well this morning. She is tolerating diet. Objective - Vital Signs Vital signs: Vital Signs Temp 98.4 F 09/01/23 14:56 Pulse 66 09/02/23 08:18 Resp 18 09/02/23 08:18 BP 137/77 09/02/23 08:18 Pulse Ox 98 09/02/23 08:18 FiO2 Intake & Output 09/01/23 09/02/23 09/02/23 18:59 06:59 18:59 Output Total 2150 1400 Balance -2150 -1400 Output: Urine 2150 1400 Uretheral (Moran) 1050 - Constitutional General appearance: Present: cooperative, no acute distress - EENT Eyes: Present: PERRLA - Neck Neck: Present: normal ROM. Absent: lymphadenopathy, rigidity - Respiratory Respiratory: bilateral: CTA - Cardiovascular Rhythm: regular Heart sounds: normal: S1, S2 - Gastrointestinal General gastrointestinal: Present: soft. Absent: tenderness - Integumentary Integumentary: Present: normal, normal turgor - Psychiatric Psychiatric: Present: A&O x's 3, appropriate affect, intact judgment & insight - Labs CBC & Chem 7: 09/01/23 07:56 09/01/23 07:56 Labs: Abnormal Lab Results - Last 24 Hours (Table) 09/01/23 09/01/23 09/01/23 Range/Units 07:56 07:56 12:51 RBC 3.67 L (3.80-5.40) m/uL Hct 33.5 L (34.0-46.0) % Sodium 133 L (137-145) mmol/L Carbon Dioxide 20 L (22-30) mmol/L Creatinine 1.33 H (0.52-1.04) mg/dL Glucose 140 H (74-99) mg/dL POC Glucose (mg/dL) 262 H (70-110) mg/dL Calcium 8.2 L (8.4-10.2) mg/dL ALT 37 H (4-34) U/L Total Protein 5.6 L (6.3-8.2) g/dL Albumin 3.3 L (3.5-5.0) g/dL 09/01/23 09/02/23 Range/Units 17:58 08:21 RBC (3.80-5.40) m/uL Hct (34.0-46.0) % Sodium (137-145) mmol/L Carbon Dioxide (22-30) mmol/L Creatinine (0.52-1.04) mg/dL Glucose (74-99) mg/dL POC Glucose (mg/dL) 163 H 154 H (70-110) mg/dL Calcium (8.4-10.2) mg/dL ALT (4-34) U/L Total Protein (6.3-8.2) g/dL Albumin (3.5-5.0) g/dL Microbiology - Last 24 Hours (Table) 08/31/23 20:23 Blood Culture - Preliminary Blood 08/31/23 20:08 Blood Culture - Preliminary Blood Assessment and Plan (1) Syncope Current Visit: Yes Status: Acute Code(s): R55 - SYNCOPE AND COLLAPSE SNOMED Code(s): 350020264 (2) JUANJOSE (acute kidney injury) Current Visit: Yes Status: Acute Code(s): N17.9 - ACUTE KIDNEY FAILURE, UNSPECIFIED SNOMED Code(s): 56887478 (3) Type 2 diabetes mellitus Current Visit: Yes Status: Acute Code(s): E11.9 - TYPE 2 DIABETES MELLITUS WITHOUT COMPLICATIONS SNOMED Code(s): 41714817 (4) Dehydration Current Visit: Yes Status: Acute Code(s): E86.0 - DEHYDRATION SNOMED Code(s): 51861087 (5) Hyperlipidemia Current Visit: No Status: Acute Code(s): E78.5 - HYPERLIPIDEMIA, UNSPECIFIED SNOMED Code(s): 43553738 Plan: Await echo results CBC and CMP in the morning. Anticipate discharge within the next 24 hours. Patient seen and evaluated by nurse practitioner, physician in agreement with plan
[2023-09-02] MEDS: ONDANSETRON 4 MG/2 ML VIAL IVP PRN (08:59)
[2023-09-02 09:26] LABS: HCT 34.2 % (34.0-46.0); HGB 11.5 gm/dL (11.4-16.0); RBC 3.77 m/uL (3.80-5.40); WBC 8.7 k/uL (3.8-10.6)
[2023-09-02 09:27] LABS: MCH 30.5 pg (25.0-35.0); MCHC 33.7 g/dL (31.0-37.0); MCV 90.6 fL (80.0-100.0); Mean Platelet Volume 8.1; Platelet Count 211 k/uL (150-450); RDW 13.3 % (11.5-15.5)
[2023-09-02 09:55] LABS: ALT 34 U/L (4-34); AST 30 U/L (14-36); African American GFR (CKD) 87 (>60 ml/min/1.73 sqM); Albumin 3.3 g/dL (3.5-5.0); Alkaline Phosphatase 73 U/L (38-126); Anion Gap 5 mmol/L; Blood Urea Nitrogen 12 mg/dL (7-17); Calcium 8.5 mg/dL (8.4-10.2); Carbon Dioxide 27 mmol/L (22-30); Chloride 103 mmol/L (98-107); Glucose 125 mg/dL (74-99); Non-African American GFR(CKD) 75 (>60 ml/min/1.73 sqM); Potassium 4.1 mmol/L (3.5-5.1); Sodium 135 mmol/L (137-145); Total Bilirubin 0.4 mg/dL (0.2-1.3); Total Protein 5.6 g/dL (6.3-8.2)
--- NOTE | 2023-09-02 10:24 | P.PN ---
Subjective HISTORY OF PRESENT ILLNESS: This is a 67-year-old female with a past medical history significant for hypertension, hyperlipidemia, diabetes, obstructive sleep apnea, and marijuana use. Patient does not follow with a staff engineer. We have been asked to see the patient in consultation for syncope. Patient examined at the bedside in the emergency room. The patient recently was on vacation in [place]. Apparently, before she left for vacation she was feeling nauseated and was prescribed Zofran. Patient returned home this weekend. She states yesterday morning she went to [facility] in the morning. When she returned home she states that she had 3 episodes of syncope. She states these episodes occurred when she was changing positions from a supine to a standing position. She states that she had no warning sign she was going to pass out. She states she was only out for a few seconds. She denies any urinary incontinence. Patient was found to have acute kidney injury with a creatinine of 2.7 on admission. Repeat creatinine 1.33 today. Patient does report having chronic diarrhea. Patient was also found to be hypotensive with blood pressure readings of 69/40 and 84/45 in the emergency room. Blood pressure has since improved. Patient denies any tobacco use. She does report marijuana use. She reports occasional alcohol use. DIAGNOSTICS: - EKG reveals sinus mechanism with no signs of acute ischemia - Chest xray negative for acute process - Laboratory data: WBC 9.5. Hemoglobin 11.4. Platelet count 203. Sodium 133. Potassium 4.0. BUN 17. Creatinine 1.33. - Current home cardiac medications include lisinopril 40 mg daily, bisoprololhydrochlorothiazide 10-6.25 mg daily, simvastatin 40 mg at night. 09/02/2023 Patient examined this morning. She remains in the emergency room. Patient states she is feeling better today. She denies any chest pain. She denies any shortness of breath. Blood pressure has improved with a recent reading of 137/77. Kidney function has normalized. BUN 12. Creatinine 0.82. 2D echo remains pending. PHYSICAL EXAM: VITAL SIGNS: Reviewed. GENERAL: Well-developed in no acute distress. HEENT: Head is normocephalic. Pupils are equal, round. Sclerae anicteric. Mucous membranes of the mouth are moist. Neck supple. No JVD or thyromegaly LUNGS: Respirations even and unlabored. Lungs essentially clear to auscultation bilaterally. HEART: Regular rate and rhythm. S1 and S2 heard. ABDOMEN: Soft. Nondistended. Nontender. Systolic murmur noted. EXTREMITIES: Normal range of motion. No clubbing or cyanosis. Peripheral pulses intact. No lower extremity edema NEUROLOGIC: Awake and alert. Oriented x 3. ASSESSMENT: Syncope, suspect secondary to hypotension Hypotension, resolved Acute kidney injury History of hypertension History of hyperlipidemia Diabetes Obstructive sleep apnea Marijuana use Chronic diarrhea, per patient PLAN: 2D echo has been ordered. Await results Continue to hold antihypertensive medications at this time. Continue to monitor blood pressure Anticipate discharge home this afternoon pending echo results Further recommendations pending patient course Nurse practitioner note has been reviewed by physician. Signing provider agrees with the documented findings, assessment, and plan of care documented by DELI WORKER as a scribe. Objective - Vital Signs Vital signs: Vital Signs Temp 98.4 F 09/01/23 14:56 Pulse 66 09/02/23 08:18 Resp 18 09/02/23 08:18 BP 137/77 09/02/23 08:18 Pulse Ox 98 09/02/23 08:18 FiO2 Intake & Output 09/01/23 09/02/23 09/02/23 18:59 06:59 18:59 Output Total 2150 1400 Balance -2150 -1400 Output: Urine 2150 1400 Uretheral (Moran) 1050 - Labs CBC & Chem 7: 09/02/23 08:21 09/02/23 08:21 Labs: Abnormal Lab Results - Last 24 Hours (Table) 09/01/23 09/01/23 09/02/23 Range/Units 12:51 17:58 08:21 RBC 3.77 L (3.80-5.40) m/uL Sodium (137-145) mmol/L Glucose (74-99) mg/dL POC Glucose (mg/dL) 262 H 163 H (70-110) mg/dL Total Protein (6.3-8.2) g/dL Albumin (3.5-5.0) g/dL 09/02/23 09/02/23 Range/Units 08:21 08:21 RBC (3.80-5.40) m/uL Sodium 135 L (137-145) mmol/L Glucose 125 H (74-99) mg/dL POC Glucose (mg/dL) 154 H (70-110) mg/dL Total Protein 5.6 L (6.3-8.2) g/dL Albumin 3.3 L (3.5-5.0) g/dL Microbiology - Last 24 Hours (Table) 08/31/23 20:23 Blood Culture - Preliminary Blood 08/31/23 20:08 Blood Culture - Preliminary Blood
[2023-09-02] MEDS: ASPIRIN 325 MG TAB PO STA (15:27)
--- NOTE | 2023-09-02 15:34 | P.CNNES ---
History of Present Illness Consult date: 09/02/23 Requesting physician: Nel Coppola Reason for Consult: Syncopal episodes History of Present Illness: Patient is a 67-year-old female was brought to the hospital by ambulance on 08/31/2023 at 5:10 PM for recurrent syncopal spells. Apparently patient that morning was feeling "off". She did go to the [employer] at 7 AM and was driving not right, driving over the lines. She got home at around 8 AM. Then she does not know the details. I spoke to patient's daughter on the phone, who provided with more detailed history. She mentioned that patient lives with her brother, who is mentioned that patient was not acting right all day, confused, stumbling around. Patient probably had a first unwitnessed fall, as everything in the bathroom was knocked off. The second syncopal spell was witnessed by patient's brother. Patient was apparently sleeping at around 4 PM, when her brother woke her up. She was act ing confused. She stood up and immediately passed out, was out for about 5 to 10 seconds. There was no convulsive activity, no tongue bite or loss of control of urine. He called patient's daughter Olesya who is an EMT, who came over. She called EMS, and when they were trying to get her to the ambulance, patient stood up and then passed out again, but the canvas baster jumpbasting held her and laid her to the floor. Again no convulsive activity. She was out for only 5 seconds. As per EMS flowsheet it was mentioned that patient recently got home from an [id number] vacation. Family states that patient has been asleep all day of, which is not her normal. When patient awoke, she fell from standing position in the kitchen. Patient was approximately unconscious for 5 seconds. Patient was alert upon EMS arrival. Patient denied any head neck or back pain. Patient's GCS was 15 and she was alert and oriented x 4. No chest pain or shortness of breath. She did feel some nausea and dizziness. Patient was pale and diaphoretic. Pupils are equal, but slow to respond. Patient attempted to stand, when she experienced another syncopal episode lasting 5 seconds. Patient awoke but slow to respond and was alert and oriented x 4. Patient's vitals at the scene was blood pressure 132/109, pulse rate 69, respirations 16, saturation 96%, temperature 97.9 and blood sugar 182. When she arrived, her blood pressure was 84/45, which went up to 69/40 then 103/64. Pulse rate 63 temperature 97.4. Blood test shows WBC 13.6 hemoglobin 12.4 normal platelets. PT PTT normal. Sodium 131 potassium 4.6, BUN 27, creatinine 2.70. AST is 44, ALT 45. Troponin negative. UA negative. Influenza, RSV and coronavirus PCR negative. Blood alcohol level negative. EKG shows normal sinus rhythm. Pelvic x-ray showed mild degeneration changes of the hip. No acute osseous pathology. Chest x-ray is normal. CT head showed no acute intracranial process. Nonspecific white matter changes, likely secondary to chronic small vessel ischemic disease. I personally reviewed CT head, agree with the findings. No evidence of cervical spine fracture. Moderate multilevel degenerative disc disease. Patient has been having some symptoms like "gas" in the right hypochondriac region has been cramping. There is no report of slurred speech, facial droop, focal numbness tingling or weakness or any new visual or strokelike symptoms. Apparently patient and her best friend went to [place] for a trip last week. Patient while sleeping in the hotel, rolled over and fell out of the bed on the floor, hitting her head on the nightstand producing a small laceration. As soon as she hit the floor, she woke up. There was no postictal confusion or any convulsive activity. Besides these, there are no other instances of syncopal spells. Patient smokes marijuana does not smoke cigarettes. She drinks beer once in a while. Denies any recent upper respiratory infection, or any symptoms of UTI. No family history of epilepsy. Review of Systems Constitutional: Reports chills, Denies fever (Always hot) Eyes: denies blurred vision, denies diplopia, denies pain, denies loss of vision Ears: bilateral: decreased hearing, ear discharge Ears, nose, mouth and throat: Denies headache, Denies sore throat, Denies vertigo Cardiovascular: Reports lightheadedness, Denies chest pain, Denies shortness of breath Respiratory: Denies cough, Denies excessive sputum Gastrointestinal: Reports diarrhea, Denies abdominal pain, Denies nausea, Denies vomiting Genitourinary: Denies dysuria, Denies hematuria, Denies urge incontinence Musculoskeletal: Reports low back pain, Reports neck pain Integumentary: Denies pruritus, Denies rash Neurological: Reports as per HPI Psychiatric: Denies anxiety, Denies depression Past Medical History Past Medical History: Asthma, Diabetes Mellitus, GERD/Reflux, Hyperlipidemia, Hypertension, Osteoarthritis (OA), Thyroid Disorder Additional Past Medical History / Comment(s): Hypothyroidism, seasonal ALLERGIES, type 2 diabetes, chronic back pain, Restless Leg syndrome. 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 History of Any Multi-Drug Resistant Organisms: None Reported Past Surgical History: Adenoidectomy, Section, Cholecystectomy, Tonsillectomy, Tubal Ligation Additional Past Surgical History / Comment(s): section 2. Colonoscopy 2017(next after 10yr) Past Anesthesia/Blood Transfusion Reactions: Postoperative Nausea & Vomiting (PONV) Past Psychological History: Depression Smoking Status: Never smoker Past Alcohol Use History: Occasional Past Drug Use History: None Reported - Past Family History Mother Family Medical History: No Reported History Brother(s) Family Medical History: Myocardial Infarction ([place]) Father Family Medical History: Diabetes Mellitus Medications and Allergies Home Medications Medication Instructions Recorded Confirmed Type Levothyroxine Sodium [Synthroid] 75 mcg PO DAILY 03/02/14 08/31/23 History Meloxicam 7.5 mg PO BID 03/02/14 08/31/23 History Montelukast Sodium [Singulair] 10 mg PO HS 03/02/14 08/31/23 History lisinopriL 40 mg PO DAILY 03/02/14 08/31/23 History Pregabalin [Lyrica] 225 mg PO BID 09/12/14 08/31/23 History Simvastatin [Zocor] 40 mg PO HS 05/27/16 08/31/23 History Pantoprazole [Protonix] 40 mg PO DAILY 03/02/20 08/31/23 History Venlafaxine HCl [Effexor XR] 150 mg PO DAILY 03/02/20 08/31/23 History oxyCODONE HCL/ACETAMINOPHEN 1 tab PO TID PRN 01/17/22 08/31/23 History [Percocet 5-325 mg] Acetaminophen Tab [Tylenol] 500 mg PO Q6H PRN 08/31/23 08/31/23 History Bimatoprost [Lumigan 0.01% Ophth 1 drop BOTH EYES HS 08/31/23 08/31/23 History Soln] Ondansetron Odt [Zofran ODT] 8 mg PO Q12HR PRN 08/31/23 08/31/23 History Aspirin 81 mg PO DAILY #30 tab 09/03/23 Rx metFORMIN HCL [Glucophage] 1,000 mg PO BID-W/MEALS #60 tab 09/03/23 Rx Allergies Allergy/AdvReac Type Severity Reaction Status Date / Time monosodium glutamate Allergy Anaphylaxis Verified 08/31/23 17:21 codeine phosphate AdvReac Vomiting Verified 08/31/23 17:21 [From Tylenol-Codeine] hydrocodone bitartrate AdvReac Vomiting Verified 08/31/23 17:21 [From Vicodin] tramadol AdvReac DIZZINESS Verified 08/31/23 17:21 Physical Examination - Vital Signs Vital Signs: Vital Signs Temp Pulse Resp BP Pulse Ox 09/02/23 11:56 64 18 122/58 97 09/02/23 10:46 65 18 149/93 99 09/02/23 08:18 66 18 137/77 98 09/02/23 07:04 69 18 133/76 97 09/02/23 05:31 61 16 108/54 96 09/02/23 03:31 69 18 123/72 96 09/01/23 21:49 68 18 124/61 98 09/01/23 20:52 67 18 131/66 100 09/01/23 17:57 66 16 121/59 09/01/23 14:56 98.4 F 65 18 108/62 97 Intake and Output 09/01/23 09/02/23 09/02/23 22:59 06:59 14:59 Output Total 1100 1400 Balance -1100 -1400 Output: Urine 1100 1400 Patient is an elderly female, very pleasant, in no acute distress. Patient is alert awake oriented to time place and person. Speech and language functions are normal. Patient can name and repeat very well. No aphasia or dysarthria. Attention, concentration and fund of knowledge is adequate. On cranial nerve examination, pupils are equal, round and reacting to light, visual carlson are full on confrontation, with no neglect on double simultaneous stimulation. Extraocular muscles are intact with no nystagmus. Face is symm etric, tongue protrudes to the midline. Palatal elevation and sensation normal, hearing is at least moderately decreased and shoulder shrug normal, facial sensation normal. On muscle strength testing, there is no pronator drift and the strength is normal in arms and legs distally and proximally. Deep tendon reflexes are symmetric 2 in the upper limbs, 1 in the lower limbs and plantars downgoing bilaterally. Sensory to touch is equal with no neglect on double simultaneous stimulation. Cerebellar function showed no ataxia for [id number] testing. No dysdiadochokinesia. No ataxia for [id number] testing on either side. Tone and bulk of muscles normal. Gait deferred.. On general examination, there is no carotid bruit or murmur, S1-S2 audible. Chest is clear on consultation. Abdomen is soft nontender. No organomegaly, bowel sounds present. Peripheral pulses are present. No peripheral edema. Results - Laboratory Findings CBC and BMP: 09/02/23 08:21 09/02/23 08:21 Abnormal Lab Findings: Abnormal Labs 08/31/23 08/31/23 08/31/23 17:52 17:58 17:58 WBC 13.6 H RBC Hct Neutrophils # 11.0 H APTT 21.2 L Sodium Chloride Carbon Dioxide BUN Creatinine Glucose POC Glucose (mg/dL) 173 H Plasma Lactic Acid Mahesh Calcium Phosphorus Magnesium AST ALT Total Protein Albumin Urine Appearance Urine Protein Urine Bacteria Hyaline Casts Urine Mucus 08/31/23 08/31/23 08/31/23 17:58 17:58 18:52 WBC RBC Hct Neutrophils # APTT Sodium 131 L Chloride 97 L Carbon Dioxide BUN 27 H Creatinine 2.70 H Glucose 163 H POC Glucose (mg/dL) Plasma Lactic Acid Mahesh 2.2 H* Calcium Phosphorus 4.9 H Magnesium 1.3 L AST 44 H ALT 45 H Total Protein Albumin Urine Appearance Cloudy H Urine Protein Trace H Urine Bacteria Rare H Hyaline Casts 23 H Urine Mucus Few H 09/01/23 09/01/23 09/01/23 07:56 07:56 12:51 WBC RBC 3.67 L Hct 33.5 L Neutrophils # APTT Sodium 133 L Chloride Carbon Dioxide 20 L BUN Creatinine 1.33 H Glucose 140 H POC Glucose (mg/dL) 262 H Plasma Lactic Acid Mahesh Calcium 8.2 L Phosphorus Magnesium AST ALT 37 H Total Protein 5.6 L Albumin 3.3 L Urine Appearance Urine Protein Urine Bacteria Hyaline Casts Urine Mucus 09/01/23 09/02/23 09/02/23 17:58 08:21 08:21 WBC RBC 3.77 L Hct Neutrophils # APTT Sodium 135 L Chloride Carbon Dioxide BUN Creatinine Glucose 125 H POC Glucose (mg/dL) 163 H Plasma Lactic Acid Mahesh Calcium Phosphorus Magnesium AST ALT Total Protein 5.6 L Albumin 3.3 L Urine Appearance Urine Protein Urine Bacteria Hyaline Casts Urine Mucus 09/02/23 08:21 WBC RBC Hct Neutrophils # APTT Sodium Chloride Carbon Dioxide BUN Creatinine Glucose POC Glucose (mg/dL) 154 H Plasma Lactic Acid Mahesh Calcium Phosphorus Magnesium AST ALT Total Protein Albumin Urine Appearance Urine Protein Urine Bacteria Hyaline Casts Urine Mucus Assessment and Plan Assessment: * Recurrent syncopal spells x 3 on the day of admission. All 3 of them occurred when patient stood up and she passed out, with loss of consciousness for no more than 5 to 10 seconds. No convulsive activity or any postictal confusion, therefore doubt seizure. Rule out orthostatic. Rule out cardiac cause/ischemia. * Patient had altered mental status all day long, unclear cause, perhaps related to metabolic encephalopathy. Reasons multifactorial as mentioned below. Blood pressure dysregulation also in the differential. Her blood pressure was elevated when EMS arrived, but was quite low when she arrived to the hospital. * Hypertension, recently worse * Acute kidney injury, improving * Transaminitis, improving. * Diabetes * Hyperlipidemia * Obesity * Glaucoma * Hard of hearing * Osteoarthritis * Marijuana use Plan: * Check orthostatics * Optimize control of blood pressure * Patient complained of some unusual gas, and cramping in the right hypochondriac region. May need further cardiac workup. * Carotid Doppler revealed no evidence of significant carotid artery hemodynamic stenosis bilaterally. Elevated velocities within the right vertebral artery can be associated with vertebral artery disease. Correlate clinically. * 2D echo completed, results pending. * Hemoglobin A1c 7.8, consistent with suboptimal control of diabetes. Recommend target A1c <7.0. * Fasting lipid panel with cholesterol 137, LDL 60, HDL 34, triglycerides 207. Patient was on Zocor 40 mg daily, but now she is on atorvastatin 20 mg. * Patient has multiple vascular risk factors. Recommend starting aspirin. We will give aspirin 324 mg x 1 dose and then 81 mg daily. Need to aggressively control all vascular risk factors. * Recommend abstinence from marijuana use. * Neurologically, no other workup indicated. Thank you for the consult. Addendum: 2D echo revealed normal left ventricular systolic function. Normal pulmonary artery systolic pressure. No significant valvular abnormalities. EF is 55 to 60%. No obvious regional wall motion abnormalities. Normal right atrial size. Mildly increased left atrial volume.
[2023-09-02 16:55] LABS: Glucose,Whole Blood 138 mg/dL (70-110)
--- NOTE | 2023-09-02 19:36 | P.PN ---
Subjective Patient is seen for follow-up for acute kidney injury. No significant complaints today. Renal function has improved. Serum creatinine decreased to 0.8 mg/dL. Maintained on IV fluids. Objective - Vital Signs Vital signs: Vital Signs Temp 97.3 F L 09/02/23 15:15 Pulse 64 09/02/23 18:19 Resp 18 09/02/23 18:19 BP 142/76 09/02/23 18:19 Pulse Ox 98 09/02/23 18:19 FiO2 Intake & Output 09/02/23 09/02/23 09/03/23 06:59 18:59 06:59 Output Total 1400 1400 Balance -1400 -1400 Weight 90.265 kg Output: Urine 1400 1400 Other: Voiding Method Indwelling Catheter - Exam patient is awake, comfortable, no acute distress Examination of the heart S1 and S2 Examination of the lungs bilateral breath sounds are heard Abdomen is soft nontender Examination of lower extremities shows no significant edema 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 - Labs CBC & Chem 7: 09/02/23 08:21 09/02/23 08:21 Labs: Abnormal Lab Results - Last 24 Hours (Table) 09/02/23 09/02/23 09/02/23 Range/Units 08:21 08:21 08:21 RBC 3.77 L (3.80-5.40) m/uL Sodium 135 L (137-145) mmol/L Glucose 125 H (74-99) mg/dL POC Glucose (mg/dL) (70-110) mg/dL Hemoglobin A1c 7.8 H (<=6.0) % Total Protein 5.6 L (6.3-8.2) g/dL Albumin 3.3 L (3.5-5.0) g/dL 09/02/23 09/02/23 Range/Units 08:21 16:54 RBC (3.80-5.40) m/uL Sodium (137-145) mmol/L Glucose (74-99) mg/dL POC Glucose (mg/dL) 154 H 138 H (70-110) mg/dL Hemoglobin A1c (<=6.0) % Total Protein (6.3-8.2) g/dL Albumin (3.5-5.0) g/dL Microbiology - Last 24 Hours (Table) 08/31/23 20:23 Blood Culture - Preliminary Blood 04/28/24 20:08 Blood Culture - Preliminary Blood Assessment and Plan Assessment: 1. Acute kidney injury, ATN, nonoliguric secondary to hypotension in the setting of use of hemalatha inhibitors and NSAIDs, currently improved. UA is benign with trace protein. Ultrasound is unremarkable. 2. Hypotension associated with hypovolemia, maintained on IV fluids. Continue to hold antihypertensive medications. 3. Syncope, most likely secondary to hypotension 4. Hypovolemic hyponatremia improving with IV hydration Plan: continue with IV fluids, decrease rate. Okay to resume HEMALATHA inhibitors if blood pressure remains elevated.
[2023-09-02 20:10] LABS: Glucose,Whole Blood 117 mg/dL (70-110)
[2023-09-02 23:17] LABS: Chol/HDL Ratio 3.94 Ratio; LDL Cholesterol,Calculated 60.8 mg/dL (0.0-131.0)
[2023-09-03 06:14] LABS: Glucose,Whole Blood 129 mg/dL (70-110)
--- NOTE | 2023-09-03 06:49 | CA ---
Transthoracic Echo Report Name: Viri Hope Age: 67 Gender: F : 1955 Exam Date: 09/02/2023 10:13 Exam Location: [facility] Ht (in): 63 Wt (lb): 199 Ordering Physician: Saman Segura MD Attending/Referring Phys: [employer] Yamini Isbell RDCS Procedure CPT: Indications: Syncope Cardiac Hx: Technical Quality: Fair Contrast 1: Total Dose (mL): Contrast 2: Total Dose (mL): MEASUREMENTS (Male / Female) Normal Values 2D ECHO LV Diastolic Diameter PLAX 4.5 cm 4.2 - 5.9 / 3.9 - 5.3 cm LV Systolic Diameter PLAX 2.3 cm IVS Diastolic Thickness 1.4 cm 0.6 - 1.0 / 0.6 - 0.9 cm LVPW Diastolic Thickness 1.0 cm 0.6 - 1.0 / 0.6 - 0.9 cm LV Relative Wall Thickness 0.5 RV Internal Dim ED PLAX 3.1 cm LA Volume 57.8 cm??? 18 - 58 / 22 - 52 cm??? LA Volume Index 28.3 cm???/m??? 16 - 28 cm???/m??? M-MODE Aortic Root Diameter MM 2.8 cm LA Systolic Diameter MM 4.9 cm LA Ao Ratio MM 1.7 AV Cusp Separation MM 1.7 cm DOPPLER AV Peak Velocity 160.5 cm/s AV Peak Gradient 10.3 mmHg AV Mean Velocity 109.2 cm/s AV Mean Gradient 5.3 mmHg AV Velocity Time Integral 34.9 cm LVOT Peak Velocity 155.7 cm/s LVOT Peak Gradient 9.7 mmHg LVOT Velocity Time Integral 37.8 cm MV Area PHT 2.5 cm??? Mitral E Point Velocity 94.0 cm/s Mitral A Point Velocity 108.4 cm/s Mitral E to A Ratio 0.9 MV Deceleration Time 297.9 ms MV E' Velocity 7.0 cm/s Mitral E to MV E' Ratio 13.4 TR Peak Velocity 194.4 cm/s TR Peak Gradient 15.1 mmHg Right Ventricular Systolic Press 20.1 mmHg FINDINGS Left Ventricle Moderately increased left ventricular wall thickness. Left ventricular cavity size normal. Normal left ventricular systolic function with no obvious regional wall motion abnormalities. Left ventricular ejection fraction is estimated at 55-60 %. Grade 1 diastolic dysfunction. Right Ventricle Normal right ventricular size and function. Right ventricular systolic pressure within normal limits. Right Atrium Normal right atrial size. Left Atrium Mildly increased left atrial volume. Mitral Valve Structurally normal mitral valve. Mild mitral annular calcification. Mild mitral regurgitation. Mitral valve thickened. Aortic Valve Trileaflet aortic valve. No aortic valve stenosis or regurgitation. Tricuspid Valve Structurally normal tricuspid valve. Mild tricuspid regurgitation. Pulmonic Valve Structurally normal pulmonic valve. Pericardium No pericardial effusion. Aorta Normal size aortic root and proximal ascending aorta. CONCLUSIONS Normal LV systolic function Normal pulmonary artery systolic pressure Normal right ventricular dimension and systolic function No significant valvular abnormalities No pericardial effusion Previewed by: Dr. Blue Augustine MD (Electronically Signed) Final Date: 03 Sep 2023 06:49
[2023-09-03] MEDS: ASPIRIN 81 MG PO SCH (08:31)
--- NOTE | 2023-09-03 08:50 | P.DS ---
Providers Date of admission: 08/31/23 20:51 Attending physician: Saman Segura Consults: 08/31/23 20:50 Consult Physician Routine Consulting Provider: Cosme Boogie Consult Reason/Comments: claudia Do you want consulting provider notified?: Yes 09/01/23 08:35 Consult Physician Routine Consulting Provider: Jaydon Chavez Consult Reason/Comments: syncope Do you want consulting provider notified?: Yes 09/01/23 08:36 Consult Physician Routine Consulting Provider: Chinedu Zapata Consult Reason/Comments: syncopal episodes Do you want consulting provider notified?: Yes Primary care physician: Saman Segura Hospital Course: The patient was admitted for altered mental status. She has an underlying history of acute kidney injury dehydration with significant nausea and vomiting. The patient had multiple syncopal episodes. Multiple consultants including nephrology cardiology and neurology were consulted. Slight adjustments to medication. Testing did not show overt pathology which required aggressive treatment. Question vertebral artery disease from neurology aspect. She is not lucid but does complain of significant nausea. I suspect we will need to evaluate the patient as an outpatient with possible endoscopy but she is tolerating diet and again noticed more syncopal episodes and no altered mental status at this time. I suspect element of dehydration. Appreciate multiple consultants input. Will follow-up in a week check appropriate laboratories and make GI referral if necessary. Patient Condition at Discharge: Serious Plan - Discharge Summary New Discharge Prescriptions: New Aspirin 81 mg PO DAILY #30 tab Continue Montelukast Sodium [Singulair] 10 mg PO HS Meloxicam 7.5 mg PO BID lisinopriL 40 mg PO DAILY Levothyroxine Sodium [Synthroid] 75 mcg PO DAILY Pregabalin [Lyrica] 225 mg PO BID Simvastatin [Zocor] 40 mg PO HS Venlafaxine HCl [Effexor XR] 150 mg PO DAILY Pantoprazole [Protonix] 40 mg PO DAILY oxyCODONE HCL/ACETAMINOPHEN [Percocet 5-325 mg] 1 tab PO TID PRN PRN Reason: Pain Ondansetron Odt [Zofran ODT] 8 mg PO Q12HR PRN PRN Reason: Nausea And Vomiting Bimatoprost [Lumigan 0.01% Ophth Soln] 1 drop BOTH EYES HS Acetaminophen Tab [Tylenol] 500 mg PO Q6H PRN PRN Reason: Fever And/ Or Pain Changed metFORMIN HCL [Glucophage] 1,000 mg PO BID-W/MEALS #60 tab Discontinued Bisoprolol-Hctz 10-6.25 mg [Ziac 10-6.25 MG] 1 tab PO DAILY Discharge Medication List Levothyroxine Sodium [Synthroid] 75 mcg PO DAILY 03/02/14 [History] Meloxicam 7.5 mg PO BID 03/02/14 [History] Montelukast Sodium [Singulair] 10 mg PO HS 03/02/14 [History] lisinopriL 40 mg PO DAILY 03/02/14 [History] Pregabalin [Lyrica] 225 mg PO BID 09/12/14 [History] Simvastatin [Zocor] 40 mg PO HS 05/27/16 [History] Pantoprazole [Protonix] 40 mg PO DAILY 03/02/20 [History] Venlafaxine HCl [Effexor XR] 150 mg PO DAILY 03/02/20 [History] oxyCODONE HCL/ACETAMINOPHEN [Percocet 5-325 mg] 1 tab PO TID PRN 01/17/22 [History] Acetaminophen Tab [Tylenol] 500 mg PO Q6H PRN 08/31/23 [History] Bimatoprost [Lumigan 0.01% Ophth Soln] 1 drop BOTH EYES HS 08/31/23 [History] Ondansetron Odt [Zofran ODT] 8 mg PO Q12HR PRN 08/31/23 [History] Aspirin 81 mg PO DAILY #30 tab 09/03/23 [Rx] metFORMIN HCL [Glucophage] 1,000 mg PO BID-W/MEALS #60 tab 09/03/23 [Rx] Follow up Appointment(s)/Referral(s): Saman Segura MD [Primary Care Provider] - 1 Week
[2023-09-03 09:51] VITALS: TEMP 98.2
[2023-09-03 10:53] LABS: HCT 36.4 % (34.0-46.0); HGB 12.1 gm/dL (11.4-16.0); MCH 30.3 pg (25.0-35.0); MCHC 33.1 g/dL (31.0-37.0); MCV 91.5 fL (80.0-100.0); Mean Platelet Volume 7.8; Platelet Count 214 k/uL (150-450); RBC 3.98 m/uL (3.80-5.40); RDW 12.8 % (11.5-15.5); WBC 8.2 k/uL (3.8-10.6)
[2023-09-03 11:05] LABS: ALT 31 U/L (4-34); AST 28 U/L (14-36); African American GFR (CKD) >90 (>60 ml/min/1.73 sqM); Albumin 3.6 g/dL (3.5-5.0); Alkaline Phosphatase 78 U/L (38-126); Anion Gap 10 mmol/L; Blood Urea Nitrogen 11 mg/dL (7-17); Calcium 8.7 mg/dL (8.4-10.2); Carbon Dioxide 22 mmol/L (22-30); Chloride 103 mmol/L (98-107); Glucose 149 mg/dL (74-99); Non-African American GFR(CKD) 83 (>60 ml/min/1.73 sqM); Potassium 4.4 mmol/L (3.5-5.1); Sodium 135 mmol/L (137-145); Total Bilirubin 0.4 mg/dL (0.2-1.3); Total Protein 5.9 g/dL (6.3-8.2)
--- NOTE | 2023-09-03 11:15 | P.PN ---
Subjective Patient is seen for follow-up for acute kidney injury. No significant complaints today. Renal function has improved. Serum creatinine decreased to 0.7 mg/dL. Maintained on IV fluids. Objective - Vital Signs Vital signs: Vital Signs Temp 98.2 F 09/03/23 08:30 Pulse 67 09/03/23 08:30 Resp 17 09/03/23 08:30 BP 145/76 09/03/23 08:30 Pulse Ox 93 L 09/03/23 08:30 FiO2 Intake & Output 09/02/23 09/03/23 09/03/23 18:59 06:59 18:59 Intake Total 240 Output Total 1400 1600 400 Balance -1400 -1360 -400 Weight 90.265 kg Intake: Oral 240 Output: Urine 1400 1600 400 Other: Voiding Method Toilet Toilet # Voids 1 - Exam patient is awake, comfortable, no acute distress Examination of the heart S1 and S2 Examination of the lungs bilateral breath sounds are heard Abdomen is soft nontender Examination of lower extremities shows no significant edema PAPER TESTER exam grossly intact - Labs CBC & Chem 7: 09/03/23 09:30 09/03/23 09:30 Labs: Abnormal Lab Results - Last 24 Hours (Table) 09/02/23 09/02/23 09/02/23 Range/Units 08:21 08:21 16:54 Sodium (137-145) mmol/L Glucose (74-99) mg/dL POC Glucose (mg/dL) 138 H (70-110) mg/dL Hemoglobin A1c 7.8 H (<=6.0) % Total Protein (6.3-8.2) g/dL Triglycerides 207.00 H (0.00-149.00) mg/dL VLDL Cholesterol, Calc 41.40 H (5.00-40.00) mg/dL HDL Cholesterol 34.80 L (40.00-60.00) mg/dL 09/02/23 09/03/23 09/03/23 Range/Units 20:05 06:09 09:30 Sodium 135 L (137-145) mmol/L Glucose 149 H (74-99) mg/dL POC Glucose (mg/dL) 117 H 129 H (70-110) mg/dL Hemoglobin A1c (<=6.0) % Total Protein 5.9 L (6.3-8.2) g/dL Triglycerides (0.00-149.00) mg/dL VLDL Cholesterol, Calc (5.00-40.00) mg/dL HDL Cholesterol (40.00-60.00) mg/dL Microbiology - Last 24 Hours (Table) 08/31/23 20:23 Blood Culture - Preliminary Blood 08/31/23 20:08 Blood Culture - Preliminary Blood Assessment and Plan Assessment: 1. Acute kidney injury, ATN, nonoliguric secondary to hypotension in the setting of use of hemalatha inhibitors and NSAIDs, currently improved. UA is benign with trace protein. Ultrasound is unremarkable. 2. Hypotension associated with hypovolemia, maintained on IV fluids. Continue to hold antihypertensive medications. 3. Syncope, most likely secondary to hypotension 4. Hypovolemic hyponatremia improving with IV hydration Plan: can DC IV fluids. Okay to resume HEMALATHA inhibitors if blood pressure remains elevated.
[2023-09-03 11:42] LABS: Glucose,Whole Blood 113 mg/dL (70-110)
[2023-09-03 12:30] VITALS: BP 148/82; PULSE 73; RESP 18
--- NOTE | 2023-09-03 13:39 | P.PN ---
Subjective HISTORY OF PRESENT ILLNESS: This is a 67-year-old female with a past medical history significant for hypertension, hyperlipidemia, diabetes, obstructive sleep apnea, and marijuana use. 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 We have been asked to see the patient in consultation for syncope. Patient examined at the bedside in the emergency room. The patient recently was on vacation in [place]. Apparently, before she left for vacation she was feeling nauseated and was prescribed Zofran. Patient returned home this weekend. She states yesterday morning she went to [facility] in the morning. When she returned home she states that she had 3 episodes of syncope. She states these episodes occurred when she was changing positions from a supine to a standing position. She states that she had no warning sign she was going to pass out. She states she was only out for a few seconds. She denies any urinary incontinence. Patient was found to have acute kidney injury with a creatinine of 2.7 on admission. Repeat creatinine 1.33 today. Patient does report having chronic diarrhea. Patient was also found to be hypotensive with blood pressure readings of 69/40 and 84/45 in the emergency room. Blood pressure has since improved. Patient denies any tobacco use. She does report marijuana use. She reports occasional alcohol use. DIAGNOSTICS: - EKG reveals sinus mechanism with no signs of acute ischemia - Chest xray negative for acute process - Laboratory data: WBC 9.5. Hemoglobin 11.4. Platelet count 203. Sodium 133. Potassium 4.0. BUN 17. Creatinine 1.33. - Current home cardiac medications include lisinopril 40 mg daily, bisoprololhydrochlorothiazide 10-6.25 mg daily, simvastatin 40 mg at night. 09/02/2023 Patient examined this morning. She remains in the emergency room. Patient states she is feeling better today. She denies any chest pain. She denies any shortness of breath. Blood pressure has improved with a recent reading of 137/77. Kidney function has normalized. BUN 12. Creatinine 0.82. 2D echo remains pending. 09/03/2023 Patient examined this morning at the bedside. Patient denies chest pain or pressure. She denies shortness of breath. Vital signs are stable. Echocardiogram completed revealing ejection fraction 55 to 60% with mild MR and mild TR PHYSICAL EXAM: VITAL SIGNS: Reviewed. GENERAL: Well-developed in no acute distress. HEENT: Head is normocephalic. Pupils are equal, round. Sclerae anicteric. Mucous membranes of the mouth are moist. Neck supple. No JVD or thyromegaly LUNGS: Respirations even and unlabored. Lungs essentially clear to auscultation bilaterally. HEART: Regular rate and rhythm. S1 and S2 heard. ABDOMEN: Soft. Nondistended. Nontender. Systolic murmur noted. EXTREMITIES: Normal range of motion. No clubbing or cyanosis. Peripheral pulses intact. No lower extremity edema NEUROLOGIC: Awake and alert. Oriented x 3. ASSESSMENT: Syncope, suspect secondary to hypotension Hypotension, resolved Acute kidney injury History of hypertension History of hyperlipidemia Diabetes Obstructive sleep apnea Marijuana use Chronic diarrhea, per patient PLAN: Continue current cardiac medications Patient has been resumed on lisinopril at discharge per primary medicine Patient is stable for discharge home today from a cardiac standpoint She is to follow-up on an outpatient basis postdischarge with Dr. Chavez in 2 weeks Nurse practitioner note has been reviewed by physician. Signing provider agrees with the documented findings, assessment, and plan of care documented by WANT AD SUPERVISOR as a scribe. Objective - Vital Signs Vital signs: Vital Signs Temp 98.2 F 09/03/23 08:30 Pulse 73 09/03/23 11:40 Resp 18 09/03/23 11:40 BP 148/82 09/03/23 11:40 Pulse Ox 100 09/03/23 11:40 FiO2 Intake & Output 09/02/23 09/03/23 09/03/23 18:59 06:59 18:59 Intake Total 240 120 Output Total 1400 1600 400 Balance -1400 -1360 -280 Weight 90.265 kg Intake: Oral 240 120 Output: Urine 1400 1600 400 Other: Voiding Method Toilet Toilet # Voids 1 - Labs CBC & Chem 7: 09/03/23 09:30 09/03/23 09:30 Labs: Abnormal Lab Results - Last 24 Hours (Table) 09/02/23 09/02/23 09/02/23 Range/Units 08:21 08:21 16:54 Sodium (137-145) mmol/L Glucose (74-99) mg/dL POC Glucose (mg/dL) 138 H (70-110) mg/dL Hemoglobin A1c 7.8 H (<=6.0) % Total Protein (6.3-8.2) g/dL Triglycerides 207.00 H (0.00-149.00) mg/dL VLDL Cholesterol, Calc 41.40 H (5.00-40.00) mg/dL HDL Cholesterol 34.80 L (40.00-60.00) mg/dL 09/02/23 09/03/23 09/03/23 Range/Units 20:05 06:09 09:30 Sodium 135 L (137-145) mmol/L Glucose 149 H (74-99) mg/dL POC Glucose (mg/dL) 117 H 129 H (70-110) mg/dL Hemoglobin A1c (<=6.0) % Total Protein 5.9 L (6.3-8.2) g/dL Triglycerides (0.00-149.00) mg/dL VLDL Cholesterol, Calc (5.00-40.00) mg/dL HDL Cholesterol (40.00-60.00) mg/dL 09/03/23 Range/Units 11:40 Sodium (137-145) mmol/L Glucose (74-99) mg/dL POC Glucose (mg/dL) 113 H (70-110) mg/dL Hemoglobin A1c (<=6.0) % Total Protein (6.3-8.2) g/dL Triglycerides (0.00-149.00) mg/dL VLDL Cholesterol, Calc (5.00-40.00) mg/dL HDL Cholesterol (40.00-60.00) mg/dL Microbiology - Last 24 Hours (Table) 08/31/23 20:23 Blood Culture - Preliminary Blood 08/31/23 20:08 Blood Culture - Preliminary Blood
[2023-09-03] MEDS ORDERED: metFORMIN 500 MG TAB PO SCH (17:30)
== END 2023-09-03 12:07 | disposition home or self-care (01) | DRG 640 ==
LOC: EC 17:10 → 3SCARD 20:51
PROVIDERS: ADMIT Family Medicine; ATTEND Family Medicine
DX: E86.0 Dehydration (principal); N17.0 Acute kidney failure with tubular necrosis; I95.9 Hypotension, unspecified; E87.1 Hypo-osmolality and hyponatremia; W06.XXXA Fall from bed, initial encounter; E86.1 Hypovolemia; Y92.59 Other trade areas as the place of occurrence of the external cause; E66.9 Obesity, unspecified; Z68.35 Body mass index [BMI] 35.0-35.9, adult; E11.9 Type 2 diabetes mellitus without complications; J45.909 Unspecified asthma, uncomplicated; E03.9 Hypothyroidism, unspecified; I10 Essential (primary) hypertension; F32.A Depression, unspecified; E78.5 Hyperlipidemia, unspecified; R74.01 Elevation of levels of liver transaminase levels; K21.9 Gastro-esophageal reflux disease without esophagitis; G47.33 Obstructive sleep apnea (adult) (pediatric); G25.81 Restless legs syndrome; K52.9 Noninfective gastroenteritis and colitis, unspecified; M19.90 Unspecified osteoarthritis, unspecified site; H91.90 Unspecified hearing loss, unspecified ear; H40.9 Unspecified glaucoma; G89.29 Other chronic pain; M54.9 Dorsalgia, unspecified; Z79.899 Other long term (current) drug therapy; Z79.890 Hormone replacement therapy; Z79.84 Long term (current) use of oral hypoglycemic drugs; Z79.82 Long term (current) use of aspirin; Z79.1 Long term (current) use of non-steroidal anti-inflammatories (NSAID); Z88.5 Allergy status to narcotic agent
CPT/HCPCS: 36415; 51702; 70450; 71045; 72125; 72170; 76770; 80053; 80061; 80320; 81001; 83036; 83605; 83735; 83880; 84100; 84484; 85025; 85027; 85379; 85610; 85730; 87040; 87636; 93005; 93306; 93880; 96361; 96365; 96366; 96367; 96375; 99285

== ENCOUNTER 2023-10-22 09:37 | Emergency (ER) | payer MEDICARE, OTHER ==
--- NOTE | 2023-10-22 10:03 | ED ---
Recheck HPI - General Chief Complaint: Recheck/Abnormal Lab/Rx Stated Complaint: high blood pressure Time Seen by Provider: 10/22/23 09:50 Source: patient, RN notes reviewed Mode of arrival: ambulatory Limitations: no limitations - History of Present Illness Initial Comments: This is a 68-year-old female who presents to the emergency department for eleva omkar blood pressure and weakness. Patient was hospitalized last month and found to have low blood pressure. At the time one of her medications, Ziac, was discontinued. She was maintained on lisinopril, 40 mg. States that about a week ago she followed up with nephrology and they cut the lisinopril dose in half. Since then her blood pressure has ranged from the 150s to 200s systolically. States that she has had intermittent headaches as well. When she develops headaches she takes another half of the lisinopril and it seems to resolve. Reports increasing fatigue over the last week and states that all she is doing is sleeping. She has minor shortness of breath. Denies any chest pain. Believes that her blood pressure was well-controlled on the full dose of lisinopril and is not sure why it was cut in half. She did not have any dizziness or episodes of hypotension on this dose. - Related Data Home Medications Medication Instructions Recorded Confirmed Levothyroxine Sodium [Synthroid] 75 mcg PO DAILY 03/02/14 10/22/23 Meloxicam 7.5 mg PO BID 03/02/14 10/22/23 Montelukast Sodium [Singulair] 10 mg PO HS 03/02/14 10/22/23 lisinopriL 20 mg PO DAILY 03/02/14 10/22/23 Pregabalin [Lyrica] 225 mg PO BID 09/12/14 10/22/23 Simvastatin [Zocor] 40 mg PO HS 05/27/16 10/22/23 Pantoprazole [Protonix] 40 mg PO DAILY 03/02/20 10/22/23 Venlafaxine HCl [Effexor XR] 150 mg PO DAILY 03/02/20 10/22/23 oxyCODONE HCL/ACETAMINOPHEN 1 tab PO TID PRN 01/17/22 10/22/23 [Percocet 5-325 mg] Acetaminophen Tab [Tylenol] 500 mg PO Q6H PRN 08/31/23 10/22/23 Bimatoprost [Lumigan 0.01% Ophth 1 drop BOTH EYES HS 08/31/23 10/22/23 Soln] Ondansetron Odt [Zofran ODT] 8 mg PO Q12HR PRN 08/31/23 10/22/23 Cyclobenzaprine [Flexeril] 10 mg PO HS PRN 10/22/23 10/22/23 metFORMIN HCL 1,000 mg PO BID 10/22/23 10/22/23 Previous Rx's Medication Instructions Recorded Aspirin 81 mg PO DAILY #30 tab 09/03/23 Allergies Allergy/AdvReac Type Severity Reaction Status Date / Time monosodium glutamate Allergy Anaphylaxis Verified 10/22/23 10:25 codeine phosphate AdvReac Vomiting Verified 10/22/23 10:25 [From Tylenol-Codeine] hydrocodone bitartrate AdvReac Vomiting Verified 10/22/23 10:25 [From Vicodin] tramadol AdvReac DIZZINESS Verified 10/22/23 10:25 Review of Systems ROS Statement: Those systems with pertinent positive or pertinent negative responses have been documented in the HPI. ROS Other: All systems not noted in ROS Statement are negative. 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 History of Any Multi-Drug Resistant Organisms: None Reported Past Surgical History: Adenoidectomy, Section, Cholecystectomy, Tonsillectomy, Tubal Ligation Additional Past Surgical History / Comment(s): section 2. Colonoscopy 2017(next after 10yr) Past Anesthesia/Blood Transfusion Reactions: Postoperative Nausea & Vomiting (PONV) Past Psychological History: Depression Smoking Status: Never smoker Past Alcohol Use History: Occasional Past Drug Use History: None Reported - Past Family History Mother Family Medical History: No Reported History Brother(s) Family Medical History: Myocardial Infarction ([place]) Father Family Medical History: Diabetes Mellitus General Exam Limitations: no limitations General appearance: alert, in no apparent distress Head exam: Present: atraumatic, normocephalic, normal inspection Respiratory exam: Present: normal lung sounds bilaterally. Absent: respiratory distress, wheezes, rales, rhonchi, stridor Cardiovascular Exam: Present: regular rate, normal rhythm, normal heart sounds. Absent: systolic murmur, diastolic murmur, rubs, gallop, clicks Neurological exam: Present: alert, oriented X3, CN II-XII intact Psychiatric exam: Present: normal affect, normal mood Skin exam: Present: warm, dry, intact, normal color. Absent: rash Course Vital Signs 10/22/23 10/22/23 10/22/23 09:38 10:30 12:38 Temperature 98.3 F 98.7 F Pulse Rate 90 81 78 Respiratory 18 16 18 Rate Blood Pressure 161/87 160/76 152/97 O2 Sat by Pulse 98 98 97 Oximetry Medical Decision Making - Medical Decision Making This is a 68 year old female who presents to the emergency department for elevated blood pressure and weakness. Was pt. sent in by a medical professional or institution? @ -No Did you speak to anyone other than the patient for history? @ -No Did you review nursing and triage notes? @ -Yes, and I agree, it is accurate with regards to the patient's symptoms. Were old charts reviewed? @ -No Differential Diagnosis? @ -Differential Weakness: Hypoglycemia, shock, sepsis, hyponatremia, anemia, infection, ME, ETOH, adverse medicine reaction, overdose, stroke, this is not meant to be an all-inclusive list. EKG interpreted by me (3pts min.)? @ -EKG interpreted by me demonstrating the following: Sinus rhythm. Ventricular rate 78 bpm, CA interval 151 ms, QRS duration 82 ms, QTc 394 ms. X-rays interpreted by me (1pt min.)? @ -Chest x-ray obtained, my interpretation identifies no localized consolidations or infiltrates. CT interpreted by me (1pt min.)? @ -Not obtained U/S interpreted by me (1pt. min.)? @ -Not obtained What testing was considered but not performed? (CT, X-rays, U/S, labs)? Why? @ -None What meds were considered but not given? Why? @ -None Did you discuss the management of the patient with other professionals? @ -No Did you reconcile home meds? @ -No Was smoking cessation discussed for >3mins.? @ -No Was critical care preformed (if so, how long)? @ -No Were there social determinants of health that impacted care today? How? (Homelessness, low income, unemployed, alcoholism, drug addiction, transportation, low edu. Level, literacy, decrease access to med. care, [facility], rehab)? @ -No Was there de-escalation of care discussed even if they declined? (Discuss DNR or withdrawal of care, Hospice)? @ -No What co-morbidities impacted this encounter? (DM, HTN, Smoking, COPD, CAD, Cancer, CVA, Hep., AIDS, mental health diagnosis, sleep apnea, morbid obesity)? @ -HTN, HLD, DM, thyroid disorder Was patient admitted / discharged? @ -Discharged. Lab work demonstrates mild hypomagnesemia with a magnesium of 1.3 and was otherwise unremarkable. 400 mg of magnesium oxide administered for the hypomagnesemia. COVID, influenza, and RSV testing negative. Urinalysis negative for signs of infection. Chest x-ray reveals no acute process. Blood pressure on arrival was 161/87. She did have a log of her most recent BP values that she brought in for review. These were ranging from the 150s to low 200s systolically. BP remained in the 150s to 160s while in the emergency department. Advised she contact her PCP and nephrology office regarding her blood pressure readings at home to see if they want to make any adjustments before changing her medication on her own accord. She was otherwise discharged home in stable condition. Undiagnosed new problem with uncertain prognosis? @ -None Drug Therapy requiring intensive monitoring for toxicity (Heparin, Nitro, Ins ulin, Cardizem)? @ -None Were any procedures done? @ -None Diagnosis/symptom? @ -Hypomagnesemia, uncontrolled BP Acute, or Chronic, or Acute on Chronic? @ -Acute Uncomplicated (without systemic symptoms) or Complicated (systemic symptoms)? @ -Uncomplicated Side effects of treatment? @ -None Exacerbation, Progression, or Severe Exacerbation] @ -Not applicable Poses a threat to life or bodily function? @ -No Return precautions reviewed in depth, the patient is instructed to return to the emergency department with any new, worsening, or concerning symptoms. Patient verbalized understanding. This case was discussed in detail with the attending ED physician, Dr. Mackey. Presentation, findings, and treatment plan discussed in detail as well. - Lab Data Result diagrams: 10/22/23 09:58 10/22/23 09:58 Lab Results 10/22/23 10/22/23 10/22/23 Range/Units 09:58 09:58 09:58 WBC 7.8 (3.8-10.6) k/uL RBC 4.27 (3.80-5.40) m/uL Hgb 13.1 (11.4-16.0) gm/dL Hct 39.7 (34.0-46.0) % MCV 93.0 (80.0-100.0) fL MCH 30.7 (25.0-35.0) pg MCHC 33.0 (31.0-37.0) g/dL RDW 12.8 (11.5-15.5) % Plt Count 298 (150-450) k/uL MPV 7.9 Neutrophils % 69 % Lymphocytes % 23 % Monocytes % 7 % Eosinophils % 0 % Basophils % 1 % Neutrophils # 5.4 (1.3-7.7) k/uL Lymphocytes # 1.8 (1.0-4.8) k/uL Monocytes # 0.5 (0-1.0) k/uL Eosinophils # 0.0 (0-0.7) k/uL Basophils # 0.1 (0-0.2) k/uL Sodium 136 L (137-145) mmol/L Potassium 4.6 (3.5-5.1) mmol/L Chloride 101 (98-107) mmol/L Carbon Dioxide 27 (22-30) mmol/L Anion Gap 8 mmol/L BUN 11 (7-17) mg/dL Creatinine 0.72 (0.52-1.04) mg/dL Est GFR (CKD-EPI)AfAm >90 (>60 ml/min/1.73 sqM) Est GFR (CKD-EPI)NonAf 88 (>60 ml/min/1.73 sqM) Glucose 183 H (74-99) mg/dL Plasma Lactic Acid Mahesh 1.7 (0.7-2.0) mmol/L Calcium 9.3 (8.4-10.2) mg/dL Magnesium 1.3 L (1.6-2.3) mg/dL Total Bilirubin 0.6 (0.2-1.3) mg/dL AST 39 H (14-36) U/L ALT 33 (4-34) U/L Alkaline Phosphatase 95 (38-126) U/L Troponin I (0.000-0.034) ng/mL Total Protein 6.8 (6.3-8.2) g/dL Albumin 4.5 (3.5-5.0) g/dL TSH 1.860 (0.465-4.680) mIU/L Urine Color Urine Appearance (Clear) Urine pH (5.0-8.0) Ur Specific [place] (1.001-1.035) Urine Protein (Negative) Urine Glucose (UA) (Negative) Urine Ketones (Negative) Urine Blood (Negative) Urine Nitrite (Negative) Urine Bilirubin (Negative) Urine Urobilinogen (<2.0) mg/dL Ur Leukocyte Esterase (Negative) Urine RBC (0-5) /hpf Urine WBC (0-5) /hpf Ur Squamous Epith Cells (0-4) /hpf Urine Mucus (None) /hpf Influenza Type A (PCR) (Not Detectd) Influenza Type B (PCR) (Not Detectd) RSV (PCR) (Not Detectd) SARS-CoV-2 (PCR) (Not Detectd) 10/22/23 10/22/23 10/22/23 Range/Units 09:58 09:58 10:09 WBC (3.8-10.6) k/uL RBC (3.80-5.40) m/uL Hgb (11.4-16.0) gm/dL Hct (34.0-46.0) % MCV (80.0-100.0) fL MCH (25.0-35.0) pg MCHC (31.0-37.0) g/dL RDW (11.5-15.5) % Plt Count (150-450) k/uL MPV Neutrophils % % Lymphocytes % % Monocytes % % Eosinophils % % Basophils % % Neutrophils # (1.3-7.7) k/uL Lymphocytes # (1.0-4.8) k/uL Monocytes # (0-1.0) k/uL Eosinophils # (0-0.7) k/uL Basophils # (0-0.2) k/uL Sodium (137-145) mmol/L Potassium (3.5-5.1) mmol/L Chloride (98-107) mmol/L Carbon Dioxide (22-30) mmol/L Anion Gap mmol/L BUN (7-17) mg/dL Creatinine (0.52-1.04) mg/dL Est GFR (CKD-EPI)AfAm (>60 ml/min/1.73 sqM) Est GFR (CKD-EPI)NonAf (>60 ml/min/1.73 sqM) Glucose (74-99) mg/dL Plasma Lactic Acid Mahesh (0.7-2.0) mmol/L Calcium (8.4-10.2) mg/dL Magnesium (1.6-2.3) mg/dL Total Bilirubin (0.2-1.3) mg/dL AST (14-36) U/L ALT (4-34) U/L Alkaline Phosphatase (38-126) U/L Troponin I <0.012 (0.000-0.034) ng/mL Total Protein (6.3-8.2) g/dL Albumin (3.5-5.0) g/dL TSH (0.465-4.680) mIU/L Urine Color Light Yellow Urine Appearance Cloudy H (Clear) Urine pH 7.0 (5.0-8.0) Ur Specific [place] 1.015 (1.001-1.035) Urine Protein Negative (Negative) Urine Glucose (UA) Negative (Negative) Urine Ketones Negative (Negative) Urine Blood Negative (Negative) Urine Nitrite Negative (Negative) Urine Bilirubin Negative (Negative) Urine Urobilinogen 2.0 (<2.0) mg/dL Ur Leukocyte Esterase Small H (Negative) Urine RBC 1 (0-5) /hpf Urine WBC 4 (0-5) /hpf Ur Squamous Epith Cells 9 H (0-4) /hpf Urine Mucus Rare H (None) /hpf Influenza Type A (PCR) Not Detected (Not Detectd) Influenza Type B (PCR) Not Detected (Not Detectd) RSV (PCR) Not Detected (Not Detectd) SARS-CoV-2 (PCR) Not Detected (Not Detectd) - Radiology Data Radiology results: report reviewed, image reviewed Disposition Clinical Impression: Hypertension Disposition: HOME SELF-CARE Instructions (If sedation given, give patient instructions): Hypertension (ED) Additional Instructions: Return to the emergency department with any new, worsening, or concerning symptoms. Continue to check your blood pressure at home several times daily. Contact your nephrology and primary care provider and let them know what your blood pressure has been running. Also let them know that it was in the 160s while you were in the emergency department and see if they would like you to change your dosage. Follow up with your primary care provider in 1-2 days. Is patient prescribed a controlled substance at d/c from ED?: No Referrals: Saman Segura MD [Primary Care Provider] - 1-2 days Time of Disposition: 12:10
[2023-10-22 10:36] LABS: ALT 33 U/L (4-34); AST 39 U/L (14-36); African American GFR (CKD) >90 (>60 ml/min/1.73 sqM); Albumin 4.5 g/dL (3.5-5.0); Alkaline Phosphatase 95 U/L (38-126); Anion Gap 8 mmol/L; Blood Urea Nitrogen 11 mg/dL (7-17); Calcium 9.3 mg/dL (8.4-10.2); Carbon Dioxide 27 mmol/L (22-30); Chloride 101 mmol/L (98-107); Glucose 183 mg/dL (74-99); Magnesium 1.3 mg/dL (1.6-2.3); Non-African American GFR(CKD) 88 (>60 ml/min/1.73 sqM); Potassium 4.6 mmol/L (3.5-5.1); Sodium 136 mmol/L (137-145); Total Bilirubin 0.6 mg/dL (0.2-1.3); Total Protein 6.8 g/dL (6.3-8.2)
[2023-10-22 10:40] LABS: Basophils # (A) 0.1 k/uL (0-0.2); Basophils % (A) 1 %; Eosinophils % (A) 0 %; HCT 39.7 % (34.0-46.0); HGB 13.1 gm/dL (11.4-16.0); Lymphocytes # (A) 1.8 k/uL (1.0-4.8); Lymphocytes % (A) 23 %; MCH 30.7 pg (25.0-35.0); Mean Platelet Volume 7.9; Monocytes # (A) 0.5 k/uL (0-1.0); Monocytes % (A) 7 %; Neutrophils # (A) 5.4 k/uL (1.3-7.7); Neutrophils % (A) 69 %; Platelet Count 298 k/uL (150-450); RBC 4.27 m/uL (3.80-5.40); RDW 12.8 % (11.5-15.5); WBC 7.8 k/uL (3.8-10.6)
[2023-10-22] MEDS: MAGNESIUM OXIDE 400 MG TAB PO STA (10:50)
--- NOTE | 2023-10-22 11:00 | XR ---
EXAMINATION TYPE: XR chest 2V DATE OF EXAM: 10/22/2023 COMPARISON: 08/31/2023 HISTORY: Shortness of breath TECHNIQUE: Frontal and lateral views of the chest are obtained. FINDINGS: Scattered senescent parenchymal changes noted. Hyperinflation compatible with COPD. No evidence for infiltrate. No evidence for atelectasis. Heart size is stable. Mediastinal structures are stable and grossly unremarkable. No evidence for hilar prominence. Degenerative changes dorsal spine. IMPRESSION: 1. No evidence for acute pulmonary disease.
[2023-10-22 11:50] LABS: Appearance,Urine Cloudy (Clear); Bilirubin,Urine Negative (Negative); Blood,Urine Negative (Negative); Color,Urine Light Yellow; Glucose,Urine (UA) Negative (Negative); Ketones,Urine Negative (Negative); Leukocyte Esterase,Urine Small (Negative); Mucus,Urine Rare /hpf; Nitrite,Urine Negative (Negative); Protein,Urine Negative (Negative); RBC,Urine 1 /hpf (0-5); Specific Gravity,Urine 1.015 (1.001-1.035); Squamous Epithelial Cell,Urine 9 /hpf (0-4); WBC,Urine 4 /hpf (0-5)
[2023-10-22 12:41] VITALS: BP 152/97; PULSE 78; RESP 18; TEMP 98.7
== END 2023-10-22 12:41 | disposition home or self-care (01) ==
LOC: EC 09:37
DX: I10 Essential (primary) hypertension (principal); E83.42 Hypomagnesemia; E11.9 Type 2 diabetes mellitus without complications; E78.5 Hyperlipidemia, unspecified; E03.9 Hypothyroidism, unspecified; Z79.890 Hormone replacement therapy; Z79.84 Long term (current) use of oral hypoglycemic drugs; Z79.899 Other long term (current) drug therapy; Z88.5 Allergy status to narcotic agent; Z91.018 Allergy to other foods
CPT/HCPCS: 36415; 71046; 80053; 81001; 83605; 83735; 84443; 84484; 85025; 87636; 93005; 99284

== ENCOUNTER → 2023-11-11 | Outpatient (CLI) | payer MEDICARE, OTHER ==
[2023-11-11 09:33] LABS: HCT 39.2 % (34.0-46.0); HGB 12.5 gm/dL (11.4-16.0); MCH 30.2 pg (25.0-35.0); MCHC 31.8 g/dL (31.0-37.0); MCV 94.8 fL (80.0-100.0); Mean Platelet Volume 7.4; Platelet Count 307 k/uL (150-450); RBC 4.14 m/uL (3.80-5.40); RDW 12.8 % (11.5-15.5); WBC 7.1 k/uL (3.8-10.6)
[2023-11-11 15:52] LABS: Appearance,Urine Clear (Clear); Bilirubin,Urine Negative (Negative); Blood,Urine Negative (Negative); Color,Urine Yellow (Yellow); Ketones,Urine Negative (Negative); Nitrite,Urine Negative (Negative); Specific Gravity,Urine 1.018 (1.001-1.030); Urobilinogen,Urine 0.2 E.U./DL
[2023-11-11 17:43] LABS: % Iron Saturation 14.75 (12.00-45.00); ALT 44 U/L (8-44); AST 34 U/L (13-35); Albumin 4.5 g/dL (3.8-4.9); Albumin/Globulin Ratio 2.14 Ratio (1.60-3.17); Alkaline Phosphatase 96 U/L (41-126); BUN/Creat Ratio 12.88 Ratio (12.00-20.00); Blood Urea Nitrogen 10.3 mg/dL (9.0-27.0); Calcium 9.5 mg/dL (8.7-10.3); Carbon Dioxide 26.7 mmol/L (21.6-31.8); Chloride 99 mmol/L (96-109); Ferritin 38.4 ng/mL (10.0-291.0); Globulin 2.1 g/dL (1.6-3.3); Glucose 175 mg/dL (70-110); Iron 59 UG/DL (50-170); Magnesium 1.5 mg/dL (1.5-2.4); Phosphorus 3.6 mg/dL (2.4-5.1); Potassium 4.9 mmol/L (3.5-5.5); Sodium 137 mmol/L (135-145); Total Bilirubin 0.3 mg/dL (0.3-1.2); Total Iron Binding Capacity 400 UG/DL (228-460); Total Protein 6.6 g/dL (6.2-8.2)
[2023-11-11 18:11] LABS: Microalbumin Creatinine Ratio <11 mg/g Cr (0-30)
== END | disposition home or self-care (01) ==
LOC: LABWHC1 07:51
PROVIDERS: ATTEND Internal Medicine Nephrology
DX: E55.9 Vitamin D deficiency, unspecified (principal); N25.81 Secondary hyperparathyroidism of renal origin; N17.9 Acute kidney failure, unspecified; N39.0 Urinary tract infection, site not specified; D64.9 Anemia, unspecified; M10.9 Gout, unspecified; R80.9 Proteinuria, unspecified
CPT/HCPCS: 36415; 80053; 81003; 82043; 82306; 82570; 82728; 83540; 83550; 83735; 83970; 84100; 84550; 85027

== ENCOUNTER 2024-11-25 15:41 | Emergency (ER) | payer MEDICARE, OTHER ==
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
--- NOTE | 2024-11-25 16:34 | XR ---
EXAMINATION TYPE: XR chest 2V DATE OF EXAM: 11/25/2024 4:12 PM COMPARISON: None. CLINICAL INDICATION: Female, 69 years old with history of Difficulty breathing , TECHNIQUE: XR chest 2V view(s) obtained. FINDINGS: The heart size is normal. The pulmonary vasculature is normal. The lungs are clear. No pneumothorax is evident. These rib fractures evident. Retrosternal space appears normal. Vertebral bodies appear normal IMPRESSION: 1. No acute posttraumatic changes. 2. No acute pulmonary process. [facility], , 11/25/2024 4:32 PM
[2024-11-25] MEDS: KETOROLAC 15 MG/ML 1 ML VIAL IM STA (16:43)
[2024-11-25 18:08] VITALS: BP 168/92; PULSE 90; RESP 17; TEMP 98.2
== END 2024-11-25 18:06 | disposition home or self-care (01) ==
LOC: EC 15:41
DX: S20.219A Contusion of unspecified front wall of thorax, initial encounter (principal); Z88.6 Allergy status to analgesic agent; Z88.5 Allergy status to narcotic agent; Z88.8 Allergy status to other drugs, medicaments and biological substances; V49.9XXA Car occupant (driver) (passenger) injured in unspecified traffic accident, initial encounter; Y92.410 Unspecified street and highway as the place of occurrence of the external cause
CPT/HCPCS: 93005; 71120; 71046; 99284; 96372; J1885